=== PATIENT | female | born 1950 | race Caucasian/White ===

== ENCOUNTER 2019-09-05 14:41 | Emergency (ER) | payer MEDICARE, SELFPAY ==
[2019-09-05] VITALS (8 sets, daily range): BP systolic 125–154; BP diastolic 62–94; PULSE 77–91; RESP 10–21; TEMP 37.1–37.2; O2SAT 93–99
--- NOTE | ~2019-09-05 | XR_ITS ---
EXAMINATION: XR chest 2V 09/05/2019 15:15 INDICATION: Chest pain and shortness of breath. A. fib. PROCEDURE: 2 view chest COMPARISON: Comparison to multiple prior studies sequentially, with oldest reviewed study dated 12/2010. FINDINGS: The lungs are clear. The cardiomediastinal silhouette is within normal limits. There are no pleural effusions. There is no pneumothorax suspected. IMPRESSION: 1: NO ACUTE CARDIOPULMONARY DISEASE. Reviewed, dictated and finalized at location B. LINE ENGINE INSPECTOR
--- NOTE | 2019-09-05 14:42 | ECG_ITS ---
Measurements Intervals [place] Rate: 81 P: NV: 0 QRS: 29 QRSD: 98 T: 12 QT: 390 QTc: 453 Interpretive Statements ATRIAL FIBRILLATION BASELINE ARTIFACT- I, II, III, AVR, AVL, AVF ABNORMAL ECG Electronically Signed On 09-05-2019 15:07:39 SWAMPER by Landon Wilson D.O.
[2019-09-05 15:11] LABS: Basophils Absolute Auto 0.1 K/mm3 (0.0-0.1); Basophils Percent Auto 0.9 % (0.2-1.2); Eosinophils Absolute Auto 0.1 K/mm3 (0-0.3); Eosinophils Percent Auto 1.5 % (0-4.4); Hemoglobin 12.5 g/dL (12.0-15.0); Immature Granulocyte Absolute 0.01 K/mm3 (0.00-0.031); Immature Granulocyte Percent A 0.2 % (0-0.5); Lymphocytes Absolute Auto 1.54 K/mm3 (0.9-3.2); Lymphocytes Percent Auto 28.8 % (18.3-44.2); Mean Corpuscular HGB Conc 31.3 g/dl (32-36); Mean Corpuscular Hemoglobin 28.8 pg (26-34); Mean Corpuscular Volume 92.2 fl (80-100); Mean Platelet Volume 9.7 fl (7.4-10.4); Monocytes Absolute Auto 0.6 K/mm3 (0.1-0.6); Monocytes Percent Auto 10.8 % (2.6-8.5); Neutrophils Absolute Auto 3.1 K/mm3 (1.3-6.7); Neutrophils Percent Auto 57.8 % (45.5-73.1); Platelet Count Result 359 k/mm3 (150-375); Red Blood Count 4.34 M/mm3 (4.2-5.4); Red Cell Distribution Width 13.8 % (11.5-14.5); White Blood Count 5.4 K/mm3 (4.5-10.0)
[2019-09-05 15:20] LABS: INR 1.1; Prothrombin Time 13.9 Seconds (11.1-14.7)
[2019-09-05 15:21] LABS: Partial Thromboplastin Time 26.1 SECONDS (22.3-36.8)
--- NOTE | 2019-09-05 15:23 | ED.CHESTPAIN ---
HPI - Chest Pain General Chief Complaint: Chest Pain <Delia Clifford MD - Last Filed: 09/06/19 13:38> Stated Complaint: cp, dizziness, sob, nausea <Delia Clifford MD - Last Filed: 09/06/19 13:38> Time Seen by Provider: 09/05/19 15:13 <Delia Clifford MD - Last Filed: 09/06/19 13:38> Source: patient and RN notes reviewed <Delia Clifford MD - Last Filed: 09/06/19 13:38> Mode of arrival: ambulatory <Deila Clifford MD - Last Filed: 09/06/19 13:38> Limitations: no limitations <Delia Clifford MD - Last Filed: 09/06/19 13:38> History of Present Illness HPI narrative: Pt is a 69 y/o female with a Hx of A-Fib, who presents to the ED with c/o lt sided chest tightness starting 2 days ago. She notes that her pain has intermittently radiated into the lt side of her neck and lt arm. Pt states that she has also had recent SOB, dizziness, nausea, and a headache. 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 Pt currently rates her CP at 4/10. She denies any rectal bleeding or epistaxis. Pt states that she is currently taking Xarelto. She notes that she has had several similar episodes within the past several months. <Delia Clifford MD - Last Filed: 09/06/19 13:38> MD complaint: chest pain <Delia Clifford MD - Last Filed: 09/06/19 13:38> Pertinent past history: other (A-Fib) <Delia Clifford MD - Last Filed: 09/06/19 13:38> Onset (ago): day(s) (2) <Delia Clifford MD - Last Filed: 09/06/19 13:38> Prior episodes: Yes <Delia Clifford MD - Last Filed: 09/06/19 13:38> Pain location: left chest <Delia Clifford MD - Last Filed: 09/06/19 13:38> Pain radiation: left arm and neck (lt side of neck) <Delia Clifford MD - Last Filed: 09/06/19 13:38> Pain scale (0-10): 4 <Delia Clifford MD - Last Filed: 09/06/19 13:38> Quality: tightness <Delia Clifford MD - Last Filed: 09/06/19 13:38> Associated symptoms: nausea, dyspnea and other (dizziness; headache) <Delia Clifford MD - Last Filed: 09/06/19 13:38> Related Data Home Medications: Home Medications Medication Instructions Recorded Confirmed carvedilol 6.25 mg tablet 6.25 mg PO Q12H 05/17/19 07/23/19 denosumab 60 mg/mL subcutaneous 60 mg SUB-Q [id number] 05/17/19 07/23/19 syringe rivaroxaban 20 mg tablet 20 mg PO DAILY 05/17/19 07/23/19 Zanaflex See Rx Instructions .ROUTE 07/23/19 07/23/19 .COMPLEX PRN ascorbic acid (vitamin C) 1,000 mg PO DAILY 07/23/19 07/23/19 cholecalciferol (vitamin D3) 07/23/19 <Delia Clifford MD - Last Filed: 09/06/19 13:38> Allergies/Adverse Reactions: Allergies Allergy/AdvReac Type Severity Reaction Status Date / Time ANTONIA Inhibitors Allergy Mild Cough Verified 09/05/19 14:49 Penicillins Allergy Unknown DIFFICULTY Verified 09/05/19 14:49 BREATHING /RASH <Delia Clifford MD - Last Filed: 09/06/19 13:38> Review of Systems Review of Systems: All systems reviewed & are unremarkable except as noted in HPI and below <Delia Clifford MD - Last Filed: 09/06/19 13:38> Constitutional: Constitutional: Reports headache(s) <Delia Clifford MD - Last Filed: 09/06/19 13:38> ENT: Denies epistaxis <Delia Clifford MD - Last Filed: 09/06/19 13:38> Cardiovascular: Cardiovascular: Reports chest pain (lt sided chest tightness) <Delia Clifford MD - Last Filed: 09/06/19 13:38> Respiratory: Respiratory: Reports dyspnea <Delia Clifford MD - Last Filed: 09/06/19 13:38> Gastrointestinal: Gastrointestinal: Denies hematochezia and Reports nausea <Delia Clifford MD - Last Filed: 09/06/19 13:38> Neurologic: Reports dizziness <Delia Clifford MD - Last Filed: 09/06/19 13:38> [facility] Past Medical History Medical History: Medical History A-fib Paroxysmal Anxiety Arthritis Bowel obstruction Cataracts, bilateral Chronic low back p
[2019-09-05 15:24] LABS: Blood Urea Nitrogen 12 mg/dL (7-17); Calcium 9.5 mg/dL (8.4-10.2); Carbon Dioxide 23 mmol/L (22-30); Chloride 105 mmol/L (98-107); Estimated CRCL calculation 48 ml/min; Estimated Glomerular Filt Rate 55; Glucose 89 mg/dL (65-105); Sodium 138 mmol/L (137-145)
[2019-09-05 15:36] LABS: Troponin I < 0.012 ng/mL (0.000-0.034)
[2019-09-05 16:25] LABS: D Dimer < 0.22 ug/mL (<0.48)
[2019-09-05 18:33] LABS: Troponin I < 0.012 ng/mL (0.000-0.034)
== END 2019-09-05 19:17 | disposition home or self-care (01) ==
PROVIDERS: Emergency Medicine; Emergency Provider Family Medicine; PCP Internal Medicine
DX: R07.89 Other chest pain (principal); R53.1 Weakness; I48.0 Paroxysmal atrial fibrillation; Z79.01 Long term (current) use of anticoagulants; M19.90 Unspecified osteoarthritis, unspecified site; N80.9 Endometriosis, unspecified; M79.7 Fibromyalgia; K21.9 Gastro-esophageal reflux disease without esophagitis; E78.5 Hyperlipidemia, unspecified; I10 Essential (primary) hypertension; E03.9 Hypothyroidism, unspecified; I34.1 Nonrheumatic mitral (valve) prolapse; Z86.73 Personal history of transient ischemic attack (TIA), and cerebral infarction without residual deficits; Z87.440 Personal history of urinary (tract) infections; E55.9 Vitamin D deficiency, unspecified; Z98.1 Arthrodesis status; G62.9 Polyneuropathy, unspecified
CPT/HCPCS: 36415; 71046; 80048; 84484; 85025; 85380; 85610; 85730; 93005; 99284

== ENCOUNTER 2019-10-22 12:00 | Outpatient (RCR) | payer MEDICARE, SELFPAY ==
[2019-10-16 13:59] LABS: Hematocrit 19.8 % (37.0-47.0); Hemoglobin 6.2 g/dL (12.0-15.0)
[2019-10-17 07:46] VITALS: BP 133/53; PULSE 142; RESP 20; TEMP 37; O2SAT 100
[2019-10-17 08:12] VITALS: BP 127/43; PULSE 74; RESP 20; TEMP 36.6; O2SAT 99
[2019-10-17 09:12] VITALS: BP 118/45; PULSE 78; RESP 16; TEMP 36.9; O2SAT 98
[2019-10-17 10:12] VITALS: BP 138/57; PULSE 102; RESP 22; TEMP 36.6; O2SAT 99
[2019-10-17 10:35] VITALS: BP 122/57; PULSE 77; RESP 14; TEMP 37.2; O2SAT 99
[2019-10-22] VITALS (7 sets, daily range): BP systolic 98–114; BP diastolic 40–61; PULSE 60–66; RESP 12–18; TEMP 36.6–37.2; O2SAT 98–100
[2019-10-22 11:33] LABS: Hematocrit 22.6 % (37.0-47.0); Mean Corpuscular HGB Conc 30.1 g/dl (32-36); Mean Corpuscular Hemoglobin 26.7 pg (26-34); Mean Corpuscular Volume 88.6 fl (80-100); Mean Platelet Volume 9.2 fl (7.4-10.4); Platelet Count Result 390 k/mm3 (150-375); Red Blood Count 2.55 M/mm3 (4.2-5.4); Red Cell Distribution Width 14.6 % (11.5-14.5); White Blood Count 3.9 K/mm3 (4.5-10.0)
[2019-10-22 11:36] LABS: Hemoglobin 6.8 g/dL (12.0-15.0)
== END 2020-01-14 23:59 | disposition home or self-care (01) ==
LOC: ANHCPCTRAN 12:00
PROVIDERS: PCP Internal Medicine; Visit Provider Internal Medicine
DX: D50.0 Iron deficiency anemia secondary to blood loss (chronic) (principal); K92.2 Gastrointestinal hemorrhage, unspecified
CPT/HCPCS: 36415; 36430; 85014; 85018; 85027; 86850; 86900; 86901; 86923; P9016

== ENCOUNTER 2019-11-17 06:52 | Outpatient (CLI) | payer MEDICARE, SELFPAY | END 2019-11-17 06:53 | disposition home or self-care (01) | PROVIDERS: PCP Internal Medicine; Visit Provider Specialist | DX: Z01.818 Encounter for other preprocedural examination (principal); Z11.59 Encounter for screening for other viral diseases | CPT/HCPCS: 87635; C9803; U0003 ==

== ENCOUNTER 2019-11-19 08:15 | Outpatient (CLI) | payer MEDICARE, SELFPAY ==
[2019-11-19 17:59] LABS: SARS-CoV-2 RNA PCR Negative
== END 2019-11-19 08:16 | disposition home or self-care (01) ==
LOC: ANHCOVIDDT 08:16
PROVIDERS: PCP Internal Medicine; Visit Provider Specialist
DX: Z01.818 Encounter for other preprocedural examination (principal); Z11.59 Encounter for screening for other viral diseases
CPT/HCPCS: 87635; C9803; U0003

== ENCOUNTER → 2019-11-21 05:39 | Day surgery (SDC) | payer MEDICARE, SELFPAY ==
[2019-11-18 18:08] VITALS: BMI 32.7
[2019-11-21] VITALS (13 sets, daily range): BP systolic 87–162; BP diastolic 53–100; PULSE 70–81; RESP 12–20; TEMP 36.3; O2SAT 93–100; BMI 33.4
--- NOTE | 2019-11-21 09:46 | SUR.PREOP ---
ARRIVES TO [facility] 4 VIA WC FROM OP SURGERY ADMITTING FOR SCHEDULED LHC W/ DR. RICH. REPORTS HAS BEEN HAVING SOB AND FATIGUE WITH ANY EXERTION. REPORTS HAS HAD SOME NAUSEA AND DIARRHEA EPISODE THIS AM, BUT FEELS OK NOW. A&OX4 ON ARRIVAL. ORIENTED TO ROOM, PLAN OF CARE, PROCEDURE. QUESTIONS ANSWERED. VOICED UNDERSTANDING. IV STARTED, LABS SENT, VS OBTAINED, CONSENT SIGNED, SKIN PREP DONE. MONITOR AFIB 70. VSS. WILL MONITOR.
[2019-11-21 10:41] LABS: Basophils Absolute Auto 0.1 K/mm3 (0.0-0.1); Basophils Percent Auto 0.9 % (0.2-1.2); Eosinophils Absolute Auto 0.1 K/mm3 (0-0.3); Eosinophils Percent Auto 1.6 % (0-4.4); Hematocrit 32.2 % (37.0-47.0); Immature Granulocyte Absolute 0.02 K/mm3 (0.00-0.031); Immature Granulocyte Percent A 0.4 % (0-0.5); Lymphocytes Absolute Auto 1.23 K/mm3 (0.9-3.2); Mean Corpuscular HGB Conc 31.1 g/dl (32-36); Mean Corpuscular Hemoglobin 26.3 pg (26-34); Mean Corpuscular Volume 84.7 fl (80-100); Mean Platelet Volume 9.9 fl (7.4-10.4); Monocytes Absolute Auto 0.5 K/mm3 (0.1-0.6); Monocytes Percent Auto 9.5 % (2.6-8.5); Neutrophils Absolute Auto 3.7 K/mm3 (1.3-6.7); Neutrophils Percent Auto 65.6 % (45.5-73.1); Platelet Count Result 352 k/mm3 (150-375); Red Cell Distribution Width 15.5 % (11.5-14.5); White Blood Count 5.6 K/mm3 (4.5-10.0)
[2019-11-21 10:51] LABS: Prothrombin Time 12.8 Seconds (11.1-14.7)
--- NOTE | 2019-11-21 11:11 | SUR.PREOP ---
DR. RICH TO BEDSIDE TO SEE PT.
[2019-11-21 11:17] LABS: Blood Urea Nitrogen 11 mg/dL (7-17); Carbon Dioxide 27 mmol/L (22-30); Chloride 106 mmol/L (98-107); Estimated CRCL calculation 48 ml/min; Estimated Glomerular Filt Rate 55; Glucose 97 mg/dL (65-105); Potassium 3.4 mmol/L (3.4-5.0); Sodium 137 mmol/L (137-145)
--- NOTE | 2019-11-21 11:48 | WPDMODSED ---
Moderate Sedation Note-Pt Data Patient Data Diagnosis: intermittent chest pain felt to be atypical of angina paroxysmal atrial fibrillation currently in sinus rhythm Present Complaint: intermittent chest pain Procedure to be performed/Plan: left heart catheterization Allergies Allergy/AdvReac Type Severity Reaction Status Date / Time ANTONIA Inhibitors Allergy Mild Cough Verified 11/21/19 11:11 Penicillins Allergy Unknown DIFFICULTY Verified 11/21/19 11:11 BREATHING /RASH Home Medications Medication Instructions Recorded Confirmed Type denosumab 60 mg/mL subcutaneous 60 mg SUB-Q [id number] 05/17/19 11/18/19 History syringe rivaroxaban 20 mg tablet 20 mg PO DAILY 05/17/19 11/21/19 History ascorbic acid (vitamin C) 1,000 mg PO DAILY 07/23/19 11/18/19 History cholecalciferol (vitamin D3) 2,000 units PO DAILY 07/23/19 11/18/19 History lovastatin 20 mg tablet 20 mg PO DAILY #90 tablet 09/11/19 11/18/19 Rx tizanidine 4 mg capsule 4 mg PO BID PRN #60 cap 11/05/19 11/18/19 Rx levothyroxine 75 mcg tablet 75 mcg PO DAILY #90 tablet 11/17/19 11/21/19 Rx biotin 1 mg PO DAILY 11/18/19 11/18/19 History carvedilol [Coreg] 12.5 mg PO BID 11/18/19 11/21/19 History duloxetine 30 mg PO DAILY 11/18/19 11/18/19 History gabapentin 300 mg PO DAILY 11/18/19 11/18/19 History butalbital 50 mg-acetaminophen 300 1 cap PO Q4H PRN #60 cap 11/19/19 Rx mg-caffeine 40 mg-codeine 30 mg cap Current Medications: Active Medications Sodium Chloride (Normal Saline Iv) 500 mls @ 100 mls/hr IV CONT .Q5H JOSÉ MIGUEL Sedation/Anesthesia: No previous sedation/anesthesia problems (including family history). [facility] Family History Family History (System 11/04/19 @ 06:15 by Neema Puente) Father Cerebrovascular accident Mother Acute myocardial infarction Sibling Acute myocardial infarction Daughter Metastatic breast cancer Daughter Chiari malformation Mother Hypertension Family history of heart disease in male family member before age 55 Family history of cardiovascular disease Father Family history of diabetes mellitus in first degree relative Family history of heart disease in male family member before age 55 Cerebrovascular accident Sibling Patient's sister is in good health Patient's brother is in good health, Onset Age: 38 Other Family history of malignant neoplasm Social History Social History (System 11/04/19 @ 06:15 by Neema Puente) Social History: The patient has 2 daughters. She has living will and desires to be a full code. She lives with her . She retired from banking. Lifelong nonsmoker. Smoking status: Never smoker Alcohol intake: never Substance use: never Gender identity (if verbalized by the patient): Female Spiritual care concerns: No Agree to blood products: Yes Mod Sed Physical Exam Physical Exam Pre Procedural Exam: Normal: Appearance, Nose, Neck, Throat, Airway, Lungs, Heart Size, Heart Rate, Heart Rhythm, Neuro Exam and Extremities Hours since solid foods: 12 Hours since liquid intake: 12 Internal Medicine - PN: Obj Da Vital Signs Vital Signs: Vital Signs - 24 hr 11/21/19 10:30 Temperature 36.3 C L Pulse Rate 70 Respiratory Rate 16 Blood Pressure 112/60 Pulse Oximetry 100 Meds/Results Medications: Active Medications Generic Name Dose Route Start Last Admin Trade Name Freq PRN Reason Stop Dose Admin Sodium Chloride 500 mls @ 100 mls/hr 11/21/19 06:05 Normal Saline Iv IV CONT .Q5H JOSÉ MIGUEL Labs CBC & Chem 7: 11/21/19 10:28 11/21/19 10:53 Labs: Laboratory Results - last 24 hr 11/21/19 11/21/19 11/21/19 10:27 10:28 10:53 WBC 5.6 RBC 3.80 L Hgb 10.0 L D Hct 32.2 L MCV 84.7 MCH 26.3 MCHC 31.1 L RDW 15.5 H Plt Count 352 MPV 9.9 Immature Gran % (Auto) 0.4 Neut % (Auto) 65.6 Lymph % (Auto) 22.0 [place] % (Auto) 9.5 H Eos % (Auto) 1.6 Baso % (Au
--- NOTE | 2019-11-21 12:18 | P.PCNCC_ITS ---
Cardiac Cath Procedure Note Date of procedure:: 11/21/19 Performing physician:: Oleksandr Wang MD Indication:: evaluation of chest pain Brief clinical history:: 69-year-old female with episodes of intermittent chest pain atypical in setting but worrisome quality ischemia. In this setting physicians have recommended angiography Procedure Procedure performed:: left heart catheterization coronary angiography and left ventriculography Angio-Seal device deployed at femoral puncture site Sedation/Medication given:: fentanyl 50 mg Versed 2 mg case start time 11:57 a.m. case end time 12:10 p.m. sedation provided by Jennifer Menendez RN , trained observer Access site:: right femoral artery Estimated blood loss:: 10-15 cc Procedure note:: patient was brought to the cardiac catheterization lab in the postabsorptive state the right femoral triangle was prepared in the usual fashion. Anesthesia was provided with 1% lidocaine infiltrated locally. Using the modified Seldinger technique a 5 [place] sheath was placed into the femoral artery. Left heart catheterization was then carried out a 5 [place] angle pigtail catheter was used to document left-sided hemodynamics, pullback pressures across the aortic valve and inject the left ventriculogram in the PAK projection. After this a 5 [place] FL4 catheter was used to engage inject the left coronary artery. The 5 [place] JR4 catheter was used to engage inject the right coronary artery. After this an angiogram was done of the femoral artery through the sheath and a 6 [place] Angio-Seal device was deployed at the puncture site with a good hemostatic result. Following this the case was terminated the patient was taken to the holding area for recovery and eventual discharge later today. 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 Findings:: Central aortic pressure was 1 60 over 74. Left ventricle 160/0 end-diastolic 7. No significant gradient on pullback across the aortic valve. The left main coronary artery is large in caliber. There is minimal stenosis in the distal aspect of the left main representing about 20% luminal stenosis. There is no view where this appears to be flow limiting. The LAD is a medium caliber artery extending down to around the apex. There is no stenosis in the LAD there is some proximal calcification in the vessel but no stenotic lesions are identified. The circumflex is a large caliber vessel giving rise to the marginal branches appears to be codominant terminating in a small left PDA. Angiographically the circumflex is unremarkable. Right coronary artery is medium caliber vessel is codominant terminating in a medium-sized RPDA. The right coronary in the 2nd portion is quite tortuous but angiographically otherwise unremarkable. Conclusion:: Codominant coronary circulation with no significant coronary disease minimal distal left main stenosis angiographically about 20% LVH with good systolic function Angio-Seal deployed at the end of the case with good hemostatic result Oleksandr Wang MD [facility]
--- NOTE | 2019-11-21 16:05 | SUR.PHASEII ---
1540 IV removed; pt felt lightheaded, became diaphoretic, felt nauseous, and BP decreased to 90's. [address] GRADER OPERATOR and Dr. Wang made aware. Per Dr. Wang keep pt additional 30 minutes to monitor if her symptoms subside and she is back to baseline, pts echo updated. 1600 pt states she is feeling better;BP increased to 116/69, will continue to monitor.
--- NOTE | 2019-11-21 16:26 | SUR.PHASEII ---
1625 Per Olive FLAG MAKER, educate pt on vasovagal syncope, encourage her to stay hydrated and sit down when feeling light headed and to try and identify triggers to these episodes.
== END | disposition home or self-care (01) ==
PROVIDERS: PCP Internal Medicine; Visit Provider Specialist
PROC: 4A023N7 Measurement of Cardiac Sampling and Pressure, Left Heart, Percutaneous Approach (ICD-10-PCS; CPT 93452; principal; 2019-11-21 11:00)
DX: R07.89 Other chest pain (principal); I48.0 Paroxysmal atrial fibrillation; Z79.01 Long term (current) use of anticoagulants
CPT/HCPCS: 36415; 80048; 85025; 85610; 93458; C1760; C1887; C1894; G0269; J1644; J2250; J3010; J7040

== ENCOUNTER 2020-01-21 01:55 | Outpatient (CLI) | payer MEDICARE, SELFPAY ==
[2020-01-21 18:39] LABS: SARS-CoV-2 RNA PCR Negative
== END 2020-01-21 01:56 | disposition home or self-care (01) ==
LOC: ANHCOVIDDT 01:57
PROVIDERS: PCP Internal Medicine; Visit Provider Specialist
DX: Z01.812 Encounter for preprocedural laboratory examination (principal); Z11.59 Encounter for screening for other viral diseases
CPT/HCPCS: 87635; C9803; U0003

== ENCOUNTER 2020-01-23 05:37 | Day surgery (SDC) | payer MEDICARE, SELFPAY ==
[2020-01-22 16:11] VITALS: BMI 33.3
[2020-01-23 11:09] LABS: Hematocrit 31.6 % (37.0-47.0); Hemoglobin 9.7 g/dL (12.0-15.0); Mean Corpuscular HGB Conc 30.7 g/dl (32-36); Mean Corpuscular Hemoglobin 24.9 pg (26-34); Mean Corpuscular Volume 81.2 fl (80-100); Mean Platelet Volume 9.7 fl (7.4-10.4); Platelet Count Result 375 k/mm3 (150-375); Red Blood Count 3.89 M/mm3 (4.2-5.4); White Blood Count 4.8 K/mm3 (4.5-10.0)
[2020-01-23] MEDS: LIDOCAINE HCL 1% LOCAL INJ 20 ML VIAL (11:40)
--- NOTE | 2020-01-23 11:54 | P.PCNCC_ITS ---
Cardiac Cath Procedure Note Date of procedure:: 01/23/20 Performing physician:: Oleksandr Wang MD Indication:: Unexplained syncope Brief clinical history:: this is a 69-year-old female with history of modest co ronary artery disease also history of paroxysmal atrial fib / flutter. Loop recorder has been recommended by my partner to investigate syncopal symptoms Procedure Procedure performed:: implantation of permanent loop recorder Sedation/Medication given:: no sedation administered Access site:: left precordium Estimated blood loss:: minimal Procedure note:: patient was brought to the cardiac catheterization lab holding area in the postabsorptive state. The patient had the 4th intercostal space identified in the midclavicular line. And marked. Patient was then prepped and draped in the normal sterile fashion. Anesthesia was injected in this region with 20 cc of 1% lidocaine. Following this a Biotronik bio monitor 3 loop recorder was inserted. The supplied blade was used to create the puncture and then the device was inserted inferior to the puncture angled to the left upper quadrant. There was minimal oozing at the puncture site this was addressed with direct manual compression and a drop of bio glue was then placed over the area which was then dressed with a Band-Aid. Telemetry using the analyzer demonstra harleen excellent telemetry quality. The patient is in atrial fibrillation with controlled ventricular response at the time of the implant. Findings:: Uneventful implantation of Biotronik bio monitor loop recorder Conclusion:: as above uneventful loop recorder implantation
== END 2020-01-23 12:25 | disposition home or self-care (01) ==
PROVIDERS: Internal Medicine Cardiovascular Disease; PCP Internal Medicine; Visit Provider Specialist
PROC: (CPT 33285; principal; 2020-01-23 11:30)
DX: R55 Syncope and collapse (principal); I48.0 Paroxysmal atrial fibrillation; I25.10 Atherosclerotic heart disease of native coronary artery without angina pectoris
CPT/HCPCS: 33285; 36415; 85027; C1764

== ENCOUNTER 2020-02-17 10:17 | Outpatient (CLI) | payer MEDICARE, SELFPAY ==
--- NOTE | 2020-02-21 11:34 | SLEEP_ITS ---
Home Sleep Test DATE OF STUDY: 02/17/2020 ORDERING PHYSICIAN: Dom Zaidi M.D. REASON FOR THE STUDY: Hypersomnia. HISTORY: This patient is a 69-year-old female, 5 feet 4 inches tall, weighing 194.5 pounds. Body mass index is 33.3. She has fragmented sleep and wakes at least 3 times at night, sometimes as often as 5 times at night, is tired every day and wants to sleep frequently during the day. She has shortness of breath. She has severe migraine headaches. She frequently snores and is occasionally loud enough that others complain about it. She rarely awakens at night with heartburn, belching, or coughing. She occasionally awakens from sleep short of breath. There is a family history with her mother, 90 years old, having sleep problems. The patient occasionally has trouble sleeping with a cold. Rarely wakes up gasping for breath at night, never has breathing problems at night reported to her by others. She occasionally sweats excessively at night. She frequently notices her heart pounding or beating irregularly at night. She occasionally falls asleep during the day, never involuntarily, never while driving, and never with physical effort. She rarely notices loss of muscle tone with strong emotion. She does not have daytime difficulties due to excessive sleepiness. She occasionally feels paralyzed with waking or falling asleep and occasionally has vivid dreamlike scenes upon awakening or falling asleep. She is never afraid to go to sleep. She occasionally has nightmares. She rarely remembers her dreams. She frequently has racing thoughts, frequently feels sad, depressed, and anxious. She occasionally has muscular tension. Occasionally notices parts of her body jerking and occasionally kicks at night. She frequently has crawling and aching feelings in her legs. She does not have morning jaw pain, rarely grinds her teeth at night, frequently is bothered by pain during the day and is awakened by pain at night, occasionally wakes up feeling stiff in the morning with sore achy muscles and frequently wakes up with pain in the neck and spine. She has stomach problems, fatigue, dizziness, bowel disturbances, memory problems, fainting spells, insomnia, and concentration difficulties. She has depression. Normal bedtime is 12 midnight, taking an hour and a half to 2 hours to fall asleep, typically waking 4-5 times at night for 20 minutes. During this time, she will read or work on a puzzle. She wakes in the morning at 7 to 8 a.m. Weekend schedule is the same. She estimates between 5 and 6 hours of sleep at night. Her sleep is often disturbed by back pain. She does not take naps. A short nap is not refreshing. She is usually drowsy in the morning for an hour. She feels better in the evening than in the morning. MEDICAL COMORBIDITIES: Depression and anxiety, coronary artery disease with nonobstructive lesions, syncopal and presyncopal episodes, atrial fibrillation, history of a GI bleed with blood loss anemia, hypertension, and hyperlipidemia. MEDICATIONS: 1. Carvedilol 3.125 mg twice a day. 2. Levothyroxine 75 mcg daily. 3. Gabapentin 300 mg once a day. 4. Calcium supplement once a day. 5. Xarelto 20 mg a day. 6. Lovastatin 20 mg a day. 7. Duloxetine 60 mg a day. 8. Nitrofurantoin 100 mg a day to prevent urinary tract infections. 9. Prolia 60 mg twice a year. 10. Vitamin D and vitamin B12 daily. HABITS: Never smoked tobacco. Caffeine, 2 cups per day. No alcohol or recreational drugs. DESCRIPTION OF THE STUDY: On the [place] Sleepiness Scale, the score is 2. This was conducted as an unattended type III portable home sleep test using 4-channel monitoring including respiratory effort channel, snoring channel, oxygen saturation channel, and hea
== END 2020-02-17 10:18 | disposition home or self-care (01) ==
LOC: ANHCSM 10:20
PROVIDERS: PCP Internal Medicine; Visit Provider Internal Medicine Cardiovascular Disease
DX: I48.0 Paroxysmal atrial fibrillation (principal); G47.10 Hypersomnia, unspecified; G47.33 Obstructive sleep apnea (adult) (pediatric)
CPT/HCPCS: 95806

== ENCOUNTER 2020-07-05 14:11 | Outpatient (CLI) | payer MEDICARE, SELFPAY ==
--- NOTE | 2020-07-06 15:28 | WPDSIXMINUTE ---
Six Minute Walk This is a 6 minutes walk for exertional dyspnea. Findings: The patient's resting room air oxygen saturation measured by pulse oximetry was 97% and her heart rate was 70. Patient ambulated for 304.8 meters and oxygen saturation remained 94 to 97%. Heart rate at the end of ambulation was 95. There are no prior studies for comparison
--- NOTE | 2020-07-06 15:37 | WPDPFTINT ---
PFT Interpretation This is a pulmonary function test with plethysmography and diffusing capacity. The test was performed and results interpreted in cords with the 2005 and 2019 ATS/ERS task force guidelines respectively using the Haile/Herb reference to questions. Of note, despite 7 attempts the patient was unable to reproducibly complete spirometry because she was very short of breath and lightheaded. Findings: Plethysmography: Total lung capacity is 4.20 L, 88% predicted. The functional residual capacity is 2.25 L, 96% predicted. The residual volume is 1.76 L, 90% predicted. Diffusion capacity: The absolute diffusing capacity is 16.8, 74% predicted. The diffusing capacity corrected for alveolar volume is 4.0, 113% predicted. In Impression: The lung volumes are normal. The absolute diffusion capacity is mildly decreased but normalizes when corrected for alveolar volume. There are no prior studies for comparison.
== END 2020-07-05 14:12 | disposition home or self-care (01) ==
PROVIDERS: PCP Internal Medicine; Visit Provider Internal Medicine Critical Care Medicine
DX: R06.02 Shortness of breath (principal)
CPT/HCPCS: 94726; 94729

== ENCOUNTER 2020-09-10 13:58 | Outpatient (CLI) | payer MEDICARE, SELFPAY ==
--- NOTE | 2020-09-10 17:21 | P.PCNPFT_ITS ---
PFT Interpretation This is a pulmonary function test with pre and post-bronchodilator spirometry. The test was performed and results interpreted in accordance with the 2019 and 2005 ATS/ERS Task Force guidelines respectively using the Global Lung Function Initiative-2012 reference equations. Reproducibility was poor. The quality of the pre bronchodilator spirometry maneuver was Grade C and post bronchodilator spirometry maneuver was Grade A. Of note this was a repeat spirometry as the patient could not complete spirometry on 07/05/2020 Findings: Spirometry: Contour of the pre and post bronchodilator expiratory flow tracings are extrememly blunted. The pre bronchodilator FVC was 2.67 L, 95% predicted. The pre bronchodilator FEV1 was 1.38 L, 64% predicted. The FEV1: FVC ratio is 52%. The post bronchodilator FVC is 2.59 L, representing a 3% decrease. The post bronchodilator FEV1 is 1.18 L, representing a 15% decrease. Impression: The spirometry was not reproducible on this study and on her previous study on 07/05/2020. Using the best available data, there is a moderate obstructive abnormality. There is no significant improvement after inhaling a s audrey dose of albuterol. Clinical correlation is recommended There are no prior studies for comparison
== END 2020-09-10 13:59 | disposition home or self-care (01) ==
PROVIDERS: PCP Internal Medicine; Visit Provider Nurse Practitioner Family
DX: R06.02 Shortness of breath (principal)
CPT/HCPCS: 94060

== ENCOUNTER 2021-01-05 11:11 | Outpatient (CLI) | payer MEDICARE, BC, SELFPAY ==
--- NOTE | ~2021-01-05 | MR_ITS ---
EXAMINATION: MR brain IAC wo con DATE: 01/05/2021 12:45 INDICATION: Migraine headache. Not intractable. Without status migrainosus. TECHNIQUE: Magnetic resonance imaging (MRI) of the brain, brainstem, and internal auditory canals was performed without intravenous contrast. Sequences included sagittal and axial T1-weighted FSE, axial diffusion-weighted FS EPI, axial T2*-weighted GRE, axial T2-weighted FLAIR Propeller, axial T2-weigh harleen Propeller, small [id number] coronal FIESTA, small [id number] coronal T1-weighted FSE, and s mall [id number] axial T1-weighted SPGR. Apparent diffusion coefficient (ADC) maps were created. COMPARISON: Brain MRI 04/03/2009 FINDINGS: There are old infarcts in right frontal lobe and the right basal ganglia. There are scatter ed areas of nonspecific increased T2-weighted signal intensity in the cerebral white matter. There is no intracranial hemorrhage, acute infarction, or abnormal intracranial mass lesion. The ventricles a re normal in size. The paranasal sinuses are clear. There are likely changes of ocular lens replaceme nt surgeries. The mastoid air cells are normal. The internal auditory canals and inner and middle ear s are normal. IMPRESSION: 1. 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 2. Mild nonspecific cerebral white matter disease, which likely represents chronic small vessel ische cindy disease, worsened from 04/03/2009. Reviewed, dictated and finalized at location A. IMPRESSION: 1. 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 2. Mild nonspecific cerebral white matter disease, which likely represents tank car inspector marie small vessel ischemic disease, worsened from 04/03/2009.
== END 2021-01-05 11:12 | disposition home or self-care (01) ==
PROVIDERS: PCP Internal Medicine; Visit Provider Nurse Practitioner
DX: G43.909 Migraine, unspecified, not intractable, without status migrainosus (principal); R93.0 Abnormal findings on diagnostic imaging of skull and head, not elsewhere classified
CPT/HCPCS: 70551

== ENCOUNTER 2021-02-17 08:33 | Outpatient (CLI) | payer MEDICARE, SELFPAY ==
--- NOTE | ~2021-02-17 | DEXA_ITS ---
Bone Density Report Name: Erin Sinha Age: 70 Sex: Female Ethnicity: White Date of : 1950 Indication: postmenopausal osteoporosis; monitoring treatment; hysterectomy; Referring Provider: MANISH CLAIRE Study: Bone densitometry was performed. Exam Date: February 17, 2021 Accession number: [id number] Bone Density: Region BMD T-score Z-score Classification AP Spine (L1-L4) 0.767 -2.5 -0.3 Osteoporosis Femoral Neck (Left) 0.557 -2.6 -0.7 Osteoporosis Total Hip (Left) 0.697 -2.0 -0.4 Osteopenia Total Hip Bilateral Avg 0.644 -2.5 -0.8 Osteoporosis Femoral Neck (Right) 0.541 -2.8 -0.8 Osteoporosis Total Hip (Right) 0.589 -2.9 -1.2 Osteoporosis World Health Organization criteria for BMD impression classify patients as: Normal (T-score at or above -1.0), Osteopenia (T-score between -1.0 and -2.5), or Osteoporosis (T-score at or below -2.5). 10-year Fracture Risk: FRAX not reported because: Some T-score for Spine Total or Hip Total or Femoral Neck at or below -2.5 Treated for osteoporosis Previous Exams: Region Exam Age BMD T-score BMD Change BMD Change Date g/cm2 vs Baseline vs Previous AP Spine(L1-L4) 02/17/2021 70 0.767 -2.5 0.014(1.8%)# -0.006(-0.8%) 10/23/2018 68 0.773 -2.5 0.020(2.6%)# 0.004(0.5%) 04/13/2015 64 0.769 -2.5 0.016(2.1%)# 0.033(4.4%)# 12/05/2012 62 0.737 -2.8 -0.017(-2.2%)# -0.017(-2.2%)# 01/18/2009 58 0.754 -2.7 Total Hip(Left) 02/17/2021 70 0.697 -2.0 -0.038(-5.2%)# -0.022(-3.1%) 10/23/2018 68 0.719 -1.8 -0.016(-2.1%)# -0.020(-2.7%) 04/13/2015 64 0.739 -1.7 0.004(0.6%)# 0.033(4.7%)# 12/05/2012 62 0.706 -1.9 -0.029(-4.0%)# -0.029(-4.0%)# 01/18/2009 58 0.735 -1.7 Total Hip(Right) 02/17/2021 70 0.589 -2.9 -0.107(-15.4%) -0.061(-9.3%)* 10/23/2018 68 0.650 -2.4 -0.047(-6.7%)# 0.008(1.3%) 04/13/2015 64 0.642 -2.5 -0.055(-7.9%)# -0.037(-5.4%)# 12/05/2012 62 0.678 -2.2 -0.018(-2.6%)# -0.018(-2.6%)# 01/18/2009 58 0.697 -2.0 *Denotes significance at 95% confidence level, LSC for AP Spine = 0.022 g/cm2, LSC for Total Hip = 0.027 g/cm2 Clinical Information Provided by Patient: Is being treated for osteoporosis Has used the following medications: Prolia (i.e. denosumab), Vitamin D, Calcium Has the following medical conditions: Hysterectomy Patient maximum height was 64 Menopause Age: 45 No regular weight bearing exercise Drinks caffeinated beverages Onset of menses at age 11 Number of children
== END 2021-02-17 08:34 | disposition home or self-care (01) ==
LOC: ANHIMG 08:38
PROVIDERS: PCP Internal Medicine; Visit Provider Internal Medicine
DX: M81.0 Age-related osteoporosis without current pathological fracture (principal); M85.852 Other specified disorders of bone density and structure, left thigh
CPT/HCPCS: 77080

== ENCOUNTER 2021-03-18 10:32 | Outpatient (CLI) | payer MEDICARE, SELFPAY ==
--- NOTE | ~2021-03-18 | XR_ITS ---
EXAMINATION: XR lg joint inject/aspiration DATE: 03/18/2021 11:12 INDICATION: Right rotator cuff tendinopathy with right shoulder pain TECHNIQUE: A time-out was performed to verify the patient's name, date of , and procedure to b e performed. The procedure including the risks, benefits, and alternatives was discussed with the pat ient. Risks discussed included bleeding and infection. The patient understood the risks and agreed to proceed. The skin overlying the rotator cuff interval of the right glenohumeral joint was prepped a nd draped in usual sterile fashion. Anesthetic was administered with 1% lidocaine subcutaneously. A 22 G needle was advanced under fluoroscopic guidance into the joint. Injection of 1 mL of Omnipaque 240 confirmed intra-articular position of the needle. Subsequently, injectate consisting of 4 mL of a 3:1 mixture of 1% lidocaine: 80 mg/mL Depo-Medrol for a total dosage of 80 mg Depo-Medrol was inst illed. Washout of contrast was seen confirming intra-articular administration. The needle was removed and the entry site was cleaned and dressed. There were no immediate complications. Fluoroscopy expo sure time was 0.1 minutes. The total number of images was 2 Total DAP was 0.301 mGycm^2 . FINDINGS: Real-time fluoroscopy demonstrates the needle in the right glenohumeral joint. Patient's pa in prior to procedure:12/09. Patient's pain following the procedure: 11/08. IMPRESSION: 1. Right glenohumeral injection of local anesthetic and steroid with decrease in the patient's presen ting pain. Reviewed, dictated and finalized at location A. IMPRESSION: 1. Right glenohumeral injection of local anesthetic and steroid with decrease i n the patient's presenting pain.
== END 2021-03-18 10:33 | disposition home or self-care (01) ==
PROVIDERS: PCP Internal Medicine; Visit Provider Orthopaedic Surgery
DX: M25.511 Pain in right shoulder (principal)
CPT/HCPCS: 20610; 77002; J1040

== ENCOUNTER 2021-07-19 07:31 | Outpatient (CLI) | payer MEDICARE, SELFPAY ==
--- NOTE | ~2021-07-19 | MR_ITS ---
EXAMINATION: MR knee LT wo con DATE: 07/19/2021 08:31 INDICATION: Left knee pain TECHNIQUE: Magnetic resonance imaging (MRI) of the left knee was performed without intravenous contra st. Sequences included coronal PD-weighted FSE, coronal PD-weighted FS FSE, sagittal T2-weighted FSE , sagittal PD-weighted FS FSE and axial PD weighted fat saturated FSE. COMPARISON: Left knee radiographs dated 07/11/2021 FINDINGS: Medial compartment: Medial meniscus is normal. Mild chondral surface regularity at the anterior weightbearing medial femo ral condyle and central aspect of the medial tibial plateau. Lateral compartment: There is a tear of indeterminate morphology involving the inner third of the body of the lateral meni scus and measuring 5 mm AP. Mild chondral swelling is surface irregularity at the anterior weightbear ing lateral femoral condyle. Patellofemoral compartment: Extensive deep chondral ulceration extending across the central aspect of the medial patellar facet, apical ridge and lateral facet. Several foci of associated underlying increased subarticular marrow s ignal. Similar deep chondral ulceration with articular cortical irregularity and subarticular increas ed marrow signal extending across the central aspect of the lateral trochlea. Ligaments and tendons: Anterior and posterior cruciate ligaments are normal. The medial collateral ligament and fibular joseph ateral ligament complex are normal. Mild distal quadriceps tendinopathy. Patellar tendon is normal. T he visualized medial and lateral hamstring tendons as well as the iliotibial band are normal. Fluid: Small left knee joint effusion with mild synovitis at the lateral gutter of the suprapatellar pouch. No loose osteochondral bodies identified. Small Heard's cyst. Osseous/other: Few small patchy regions of red marrow in the distal femur and proximal tibia and fibula. No fracture or pathologic marrow replacing process. IMPRESSION: 1. Small tear of indeterminate morphology involving the inner third of the body of the lateral menisc us. 2. 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 3. Mild osteoarthritis with small regions of mild chondral surface regularity in the medial and later al compartments. 4. Mild distal quadriceps tendinopathy. 5. Small left knee joint effusion and small Heard's cyst. Reviewed, dictated and finalized at location A. AN IMPRESSION: 1. Small tear of indeterminate morphology involving the inner third of the body of the lateral meniscus. 2. Moderate patellofemoral osteoarthritis with extensive high-grade chondromala ken. 3. Mild osteoarthritis with small regions of mild chondral surface regularity i n the medial and lateral compartments. 4. Mild distal quadriceps tendinopathy. 5. Small left knee joint effusion and small Heard's cyst.
== END 2021-07-19 07:32 | disposition home or self-care (01) ==
PROVIDERS: PCP Internal Medicine; Visit Provider Orthopaedic Surgery
DX: M25.562 Pain in left knee (principal); S83.282A Other tear of lateral meniscus, current injury, left knee, initial encounter; M17.12 Unilateral primary osteoarthritis, left knee; M22.42 Chondromalacia patellae, left knee; M76.892 Other specified enthesopathies of left lower limb, excluding foot; M25.462 Effusion, left knee; M71.22 Synovial cyst of popliteal space [Baker], left knee
CPT/HCPCS: 73721

== ENCOUNTER 2021-10-24 09:42 | Outpatient (CLI) | payer MEDICARE, SELFPAY ==
--- NOTE | ~2021-10-24 | MR_ITS ---
EXAMINATION: MR shoulder RT wo con DATE: 10/24/2021 10:54 INDICATION: Right shoulder pain TECHNIQUE: Magnetic resonance imaging (MRI) of the right shoulder was performed without intravenous c ontrast. Sequences included axial PD-weighted FS FSE, coronal oblique PD-weighted FS FSE, coronal obl ique T2-weighted FS FSE, sagittal PD-weighted FS FSE, and sagittal T1-weighted SE. COMPARISON: None. FINDINGS: Coracoacromial arch: The acromion undersurface is curved in morphology (type II). The coracoacromial ligament is normal. M ild acromioclavicular osteoarthritis. Rotator cuff: Mild supraspinatus, infraspinatus and subscapularis tendinopathy without discrete tear. The teres min or tendon is normal. Normal rotator cuff muscle bulk and signal. Biceps tendon, glenoid labrum and glenohumeral cartilage: Long head of the biceps tendon is normal. Mild partial-thickness cartilage loss with smooth chondral surface along the posterior glenoid. The posterior and posterosuperior glenoid labrum is small likely reflecting changes of chronic degeneration without a clearly defined labral tear. Fluid: Physiologic amount of fluid in the glenohumeral joint and biceps tendon sheath. No loose osteochondr al bodies. No abnormal increased fluid in the subacromial/subdeltoid bursa to suggest bursitis. Bones: Normal marrow signal with no edema, fracture or abnormal marrow replacing process. IMPRESSION: 1. Mild supraspinatus, infraspinatus and subscapularis tendinopathy without discrete tear. 2. Mild glenohumeral osteoarthritis with likely degeneration of the small posterior to posterior supe rior glenoid labrum. 3. Mild acromioclavicular osteoarthritis. Reviewed, dictated and finalized at location B. IMPRESSION: 1. Mild supraspinatus, infraspinatus and subscapularis tendinopathy without dis crete tear. 2. Mild glenohumeral osteoarthritis with likely degeneration of the small poste rior to posterior superior glenoid labrum. 3. Mild acromioclavicular osteoarthritis.
== END 2021-10-24 09:43 | disposition home or self-care (01) ==
LOC: ANHIMG 09:47
PROVIDERS: PCP Internal Medicine; Visit Provider Orthopaedic Surgery
DX: M19.011 Primary osteoarthritis, right shoulder (principal)
CPT/HCPCS: 73221

== ENCOUNTER 2023-04-30 09:50 | Outpatient (CLI) | payer MEDICARE, SELFPAY ==
--- NOTE | ~2023-04-30 | DEXA_ITS ---
Bone Density Report Name: FLORY ABDALLA Age: 72 Sex: Female Ethnicity: White Date of : 1950 Indication: postmenopausal osteoporosis; monitoring treatment; prior fracture; hysterectomy; Referring Provider: ANTONELLA BENTON Study: Bone densitometry was performed. Exam Date: April 30, 2023 Accession number: [id number] Bone Density: Region BMD T-score Z-score Classification AP Spine(L1-L4) 0.763 -2.6 -0.2 Osteoporosis Femoral Neck (Left) 0.564 -2.6 -0.5 Osteoporosis Total Hip (Left) 0.712 -1.9 -0.1 Osteopenia Femoral Neck (Right) 0.538 -2.8 -0.7 Osteoporosis Total Hip (Right) 0.600 -2.8 -1.0 Osteoporosis Total Hip Mean 0.656 -2.4 -0.6 Osteopenia World Health Organization criteria for BMD impression classify patients as: Normal (T-score at or above -1.0), Osteopenia (T-score between -1.0 and -2.5), or Osteoporosis (T-score at or below -2.5). 10-year Fracture Risk: FRAX not reported because: Some T-score for Spine Total or Hip Total or Femoral Neck at or below -2.5 Treated for osteoporosis Previous Exams: Region Exam Age BMD T-score BMD Change BMD Change Date g/cm2 vs Baseline vs Previous AP Spine (L1-L4) 04/30/2023 72 0.763 -2.6 0.026 (3.6%)# -0.004 (-0.5%) 02/17/2021 70 0.767 -2.5 0.031 (4.1%)# -0.006 (-0.8%) 10/23/2018 68 0.773 -2.5 0.037 (5.0%)# 0.004 (0.5%) 04/13/2015 64 0.769 -2.5 0.033 (4.4%)# 0.033 (4.4%)# 12/05/2012 62 0.737 -2.8 Total Hip(Left) 04/30/2023 72 0.712 -1.9 0.006 (0.8%)# 0.015 (2.1%) 02/17/2021 70 0.697 -2.0 -0.009 (-1.2%) -0.022 (-3.1%) 10/23/2018 68 0.719 -1.8 0.013 (1.9%)# -0.020 (-2.7%) 04/13/2015 64 0.739 -1.7 0.033 (4.7%)# 0.033 (4.7%)# 12/05/2012 62 0.706 -1.9 Total Hip(Right) 04/30/2023 72 0.600 -2.8 -0.079 (-11.6% 0.010 (1.7%) 02/17/2021 70 0.589 -2.9 -0.089 (-13.1% -0.061 (-9.3%) 10/23/2018 68 0.650 -2.4 -0.028 (-4.2%) 0.008 (1.3%) 04/13/2015 64 0.642 -2.5 -0.037 (-5.4%) -0.037 (-5.4%) 12/05/2012 62 0.678 -2.2 *Denotes significance at 95% confidence level, LSC for AP Spine = 0.022 g/cm2, LSC for Total Hip = 0.027 g/cm2 # Denotes dissimilar scan types or analysis methods Clinical Information Provided by Patient: Has had a low trauma fracture Is being treated for osteoporosis Has used the following medications: Prolia (i.e. denosumab), Vitamin D, Calcium Has the following medical conditions: Hysterectomy Patient maximum height was 64 Menopause Age: 2
== END 2023-04-30 09:51 | disposition home or self-care (01) ==
LOC: ANHIMG 09:52
PROVIDERS: PCP Nurse Practitioner; Visit Provider Nurse Practitioner
DX: M81.0 Age-related osteoporosis without current pathological fracture (principal); M85.852 Other specified disorders of bone density and structure, left thigh; M85.851 Other specified disorders of bone density and structure, right thigh
CPT/HCPCS: 77080

== ENCOUNTER 2023-12-14 15:22 | Outpatient (CLI) | payer MEDICARE, SELFPAY ==
--- NOTE | ~2023-12-14 | XR_ITS ---
XR foot LT min 3V Ordering provider: Alexander Sifuentes APRN History: . M79.672 - Pain in left foot . Comparison: None. FINDINGS: BONES: No acute fracture or dislocation. JOINT SPACES: Narrowing of the proximal and distal interphalangeal joints. No tarsal coalition. SOFT TISSUES: Normal. IMPRESSION: No acute osseous abnormality left foot. Reviewed, dictated and finalized at location A.
--- NOTE | ~2023-12-14 | CT_ITS ---
EXAMINATION: CT brain wo con DATE: 12/14/2023 16:07 INDICATION: Altered mental status TECHNIQUE: Computed tomography (CT) of the head was performed without intravenous contrast. The mA wa s adjusted according to patient size. Iterative reconstruction technique was employed. Exam dose: 60 5.33 mGy-cm total exam DLP. COMPARISON: 01/05/2021 MR brain 04/01/2009 CT brain FINDINGS: Chronic right frontal and right greater than left basal ganglia lacunar infarcts. Bilateral carotid siphon internal carotid artery calcifications. There is nonspecific diminished atte nuation of the cerebral white matter, likely due to chronic small vessel ischemic changes. No intracranial mass lesion or hemorrhage or recent cerebrovascular accident is detected. No midline shift or mass effect. No subdural or epidural hematoma is detected. No fracture or bone destruction of the cranial vault. The mastoid air cells and included paranasal si nuses are unremarkable. IMPRESSION: Chronic right frontal and bilateral basal ganglia lacunar infarcts No acute intracranial finding Reviewed, dictated and finalized at Location A. Reviewed, dictated and finalized at location A.
== END 2023-12-14 15:23 | disposition home or self-care (01) ==
PROVIDERS: PCP Nurse Practitioner; Visit Provider Nurse Practitioner
DX: M79.672 Pain in left foot (principal); R41.82 Altered mental status, unspecified; R51.9 Headache, unspecified
CPT/HCPCS: 70450; 73630

== ENCOUNTER 2024-02-22 12:57 | Outpatient (CLI) | payer MEDICARE, SELFPAY ==
--- NOTE | ~2024-02-22 | CT_ITS ---
EXAMINATION: CTA brain carotid DATE: 02/22/2024 13:29 INDICATION: Weakness. TECHNIQUE: Computed tomographic angiography (CTA) of the head was performed without and with 100 mL O mnipaque-350 intravenous contrast. CTA of the neck was performed with intravenous contrast. Automated exposure control and iterative reconstruction technique were employed. The dose-length product was 1 479.19 mGy-cm. Maximum intensity projection and volume rendered 3D-reconstructions were created by vidhya fischer technologist on a separate workstation. COMPARISON: Head CT 12/14/2023, brain MRI 01/05/21 FINDINGS: HEAD CTA: There is chronic encephalomalacia involving right frontal lobe. There are old infarcts in t he bilateral basal ganglia. There is no intracranial hemorrhage, acute infarction, or abnormal intrac ranial mass lesion. The ventricles are normal in size. There are likely changes of ocular lens replac ement surgeries. The paranasal sinuses are clear. The mastoid air cells are normal. Right vertebral a rtery is dominant. There is no significant stenosis of basilar artery or the posterior cerebral arter ies. There is no significant stenosis of the intracranial internal carotid arteries or anterior or mi ddle cerebral arteries. Anterior communicating artery is normal. The posterior communicating arteries are normal. There is no aneurysm. 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 There are no pathologically enlarged lymph nodes. There is no significant stenosis of the vertebral arteries. The re is no significant plaque in the proximal internal carotid arteries. There is 0% stenosis of the pr oximal right internal carotid artery relative to normal distal artery lumen diameter (NASCET criteria ). There is 0% stenosis of the proximal left internal carotid artery relative to normal distal artery lumen diameter. There is moderate cervical spondylosis. IMPRESSION: 1. Chronic encephalomalacia involving the right frontal lobe. Old lacunar infarcts in the bilateral b jeremi ganglia. 2. No aneurysm or significant intracranial arterial stenosis. 3. 0% stenosis of the proximal internal carotid arteries relative to normal distal artery lumen diame ters (NASCET criteria). Reviewed, dictated and finalized at location A. IMPRESSION: 1. Chronic encephalomalacia involving the right frontal lobe. Old lacunar infar cts in the bilateral basal ganglia. 2. No aneurysm or significant intracranial arterial stenosis. 3. 0% stenosis of the proximal internal carotid arteries relative to normal dis maris artery lumen diameters (NASCET criteria).
[2024-02-22 13:20] LABS: Estimated Glomerular Filt Rate 48
== END 2024-02-22 12:58 | disposition home or self-care (01) ==
LOC: ANHIMG 12:59
PROVIDERS: PCP Nurse Practitioner; Visit Provider Psychiatry & Neurology Neurology
DX: R53.1 Weakness (principal)
CPT/HCPCS: 70496; 70498; Q9967

== ENCOUNTER 2024-03-06 13:37 | Outpatient (CLI) | payer MEDICARE, SELFPAY ==
--- NOTE | 2024-03-06 13:51 | ECHO_ITS ---
Patient Info Name: Erin Sinha Age: 73 years : 1950 Gender: Female Ht: 64 in Wt: 157 lbs BSA: 1.81 m2 HR: 74 bpm BP: 130 / 73 mmHg Heart Rhythm: Sinus Rhythm Technical Quality: Good Exam Date: 03/06/2024 1:58 PM Exam Location: Echo Lab Patient Status: Outpatient Admit Date: 03/06/2024 Staff Ordering Physician: Nasra Urena MD Interlocking Machine Operator: Madhuri Pena RDCS Attending Provider: MyrtleJennifer MD Referring Physician: Ayanna ZENDEJAS; Exam Type: CA echo doppler w bubble study Study Info Indications - HISTORY OF STROKE R41.82 - ALTERED MENTAL STATUS UNSPECIFIED R51.9 - HEADACHE, UNSPECIFIED R06.02 - Shortness of breath R53.1 - Weakness Complete two-dimensional, color flow and Doppler transthoracic echocardiogram is performed with agitated saline. Strain analysis performed. Contrast/Agitated Saline Contrast/Ag. Saline: Agitated Saline Amount: 20.00 ml New IV Access: Antecubital Space and Left Site Condition: No extravasation, Site dressing applied and IV removed Summary 1. Left ventricular chamber dimension is normal. 2. Left ventricular systolic function is normal, estimated at 55-60%. 3. There is mild asymmetric septal increased left ventricular wall thickness. 4. The left ventricular diastolic function is grade III diastolic dysfunction. 5. Right ventricular chamber dimension is mildly enlarged. 6. Right ventricular systolic function is normal. 7. Left atrial chamber dimension is severely enlarged. 8. Intact interatrial septum visualized by color flow and agitated saline imaging. Negative bubble study. 9. There is mild mitral valve regurgitation. 10. There is mild tricuspid valve regurgitation. Left Ventricle Left ventricular chamber dimension is normal. Left ventricular systolic function is normal, estimated at 55-60%. There is mild asymmetric septal increased left ventricular wall thickness. The left ventricular diastolic function is grade III diastolic dysfunction. Global longitudinal strain is abnormal at -17 %. Right Ventricle Linear artifact in right ventricle suggestive of catheter(s), pacemaker lead(s), or ICD lead(s). Right ventricular chamber dimension is mildly enlarged. Right ventricular systolic function is normal. Left Atria Left atrial chamber dimension is severely enlarged. Right Atria Linear artifact in the right atrium suggestive of catheter(s), pacemaker lead(s), or ICD lead(s). Right atrial chamber dimension is normal. Atrial Septum Intact interatrial septum visualized by color flow and agitated saline imaging. Negative bubble study. Aortic Valve The aortic valve is trileaflet. There is no aortic valve stenosis. There is no aortic valve regurgitation. Pulmonic Valve The pulmonic valve is not well visualized. There is trace pulmonic regurgitation. Mitral Valve There is mild mitral valve regurgitation. Tricuspid Valve There is mild tricuspid valve regurgitation. Pericardium/Pleural There is no pericardial effusion. Inferior Vena Cava Normal inferior vena cava with <50% collapse upon inspiration consistent with elevated right atrial pressure, 8 mmHg. Aorta The aortic root size at the sinus of Valsalva is normal. Left Ventricular Outflow Tract Name Value Normal LVOT 2D LVOT
== END 2024-03-06 13:38 | disposition home or self-care (01) ==
LOC: ANHCARD 13:38
PROVIDERS: PCP Nurse Practitioner; Visit Provider Student in an Organized Health Care Education/Training Program
DX: R06.02 Shortness of breath (principal); R41.82 Altered mental status, unspecified; R51.9 Headache, unspecified; R53.1 Weakness
CPT/HCPCS: 93306; 96375

== ENCOUNTER 2024-05-01 13:26 | Outpatient (CLI) | payer MEDICARE, SELFPAY ==
--- NOTE | ~2024-05-01 | XR_ITS ---
XR shoulder RT min 2V Ordering provider: Alexander Sifuentes APRN History: . M25.511 - Pain in right shoulder X NOVEMBER AFTER FALL RADIATING . Comparison: October 31, 2021 FINDINGS: BONES: No acute fracture or dislocation. JOINT SPACES: The acromioclavicular joint is normal. The glenohumeral joint is normal. SOFT TISSUES: Normal. IMPRESSION: No acute osseous abnormality right shoulder. Reviewed, dictated and finalized at location A.
== END 2024-05-01 13:27 | disposition home or self-care (01) ==
PROVIDERS: PCP Nurse Practitioner; Visit Provider Nurse Practitioner
DX: M25.511 Pain in right shoulder (principal)
CPT/HCPCS: 73030

== ENCOUNTER 2024-05-08 13:10 | Outpatient (CLI) | payer MEDICARE, SELFPAY ==
--- NOTE | 2024-05-08 15:00 | NEURO_ITS ---
Clinical note: Patient is 73-year-old with history of paresthesias in her both feet and lower back pain. Patient has had surgery in the lumbar spine in 2004. Summary of findings: 1. Left and right peroneal and tibial motor distal latency amplitude and conduction velocities were within acceptable normal limits. 2. Left and right sural and right medial plantar sensory distal latency was normal however amplitudes were mildly decreased. 3. Left and right H reflex latencies were at the upper limits of the normal however amplitudes are significantly decreased. 4. EMG examination was performed using a mono polar needle electrode. Various muscles were examined in lower limbs including gluteal muscles. paraspinal muscles were not examined since the patient has had surgery in the lumbar spine. No denervation changes were seen. Motor unit amplitude, duration and recruitment pattern were within acceptable normal limits. Impression: EMG and nerve conduction study of both lower limbs show evidence of mild, length-dependent, predominantly sensory, axonal peripheral neuropathy. Clinical an etiologic correlation is recommended. The patient has had surgery in the lumbar spine and hence paraspinal muscles were is not examined. However this study did not show supportive evidence for L3-S1 radiculopathy at this time. If clinically relevant radiographic correlation may be helpful. Nasra Urena MD, FAAN, FAANEM Neurology and electrodiagnostic Medicine Nerve Conduction Studies Motor Nerve Results Latency Amplitude F-Lat Segment Distance CV Comment Site (ms) (mV) (ms) (cm) (m/s) Left Fibular (EDB) Motor Ankle 3.9 2.6 Pop Fossa 12.6 1.90 Pop Fossa-Ankle 355 40 Right Fibular (EDB) Motor Ankle 4.2 3.3 Pop Fossa 13.1 3.0 Pop Fossa-Ankle 350 39- Left Tibial (AHB) Motor Ankle 4.7 9.2 Knee 15.6 5.9 Knee-Ankle 410 38 Right Tibial (AHB) Motor Ankle 5.0 9.3 Knee 15.1 6.8 Knee-Ankle 420 42 Sensory Nerve Results Latency (Peak) Amplitude (P-P) Segment Distance CV Comment Site (ms) (?V) (cm) (m/s) Right Medial Plantar (Ortho) Sensory Great Toe-Med Mall 2.7 7 Great Toe-Med Mall 110 41 Left Sural Sensory Calf-Lat Mall 3.6 7 Calf-Lat Mall 120 33 Right Sural Sensory Calf-Lat Mall 3.3 7 Calf-Lat Mall 120 36 H-Reflex Results M-Lat H Lat H Peak-Peak Amp M Peak-Peak Amp H-M Lat Site (ms) (ms) mV mV (ms) Left Tibial H-Reflex Pop Fossa 6.2 34.7 1.89 1.88 28.5 Right Tibial H-Reflex Pop Fossa 6.4 32.5 1.96 1.43 26.1 Electromyography Side Muscle Nerve Ins Act Fibs Psw Amp Dur Recrt Comment Right BicepsFemS Sciatic Nml Nml Nml Nml Nml Nml Right Semimembranosus Sciatic Nml Nml Nml Nml Nml Nml Right AntTibialis Dp Br Fibular Nml Nml Nml Nml Nml Nml Right Gastroc Tibial Nml Nml Nml Nml Nml Nml Right VastusMed Femoral Nml Nml Nml Nml Nml Nml Right RectFemoris Femoral Nml Nml Nml Nml Nml Nml Right TensorFascLat SupGluteal Nml Nml Nml Nml Nml Nml Left BicepsFemS Sciatic Nml Nml Nml Nml Nml Nml Left Semimembranosus Sciatic Nml Nml Nml Nml Nml Nml Left AntTibialis Dp Br Fibular Nml Nml Nml Nml Nml Nml Left Gastroc Tibial Nml Nml Nml Nml Nml Nml Left VastusMed Femoral Nml Nml Nml Nml Nml Nml MTDD
== END 2024-05-08 13:11 | disposition home or self-care (01) ==
PROVIDERS: PCP Internal Medicine; Visit Provider Psychiatry & Neurology Neurology
DX: R53.1 Weakness (principal)
CPT/HCPCS: 95886; 95910

== ENCOUNTER 2024-10-22 18:57 | Emergency (ER) | payer MEDICARE, SELFPAY ==
--- NOTE | ~2024-10-22 | XR_ITS ---
HISTORY: fall COMPARISON: None TECHNIQUE: 2 views of the left elbow were performed FINDINGS: No acute fracture is identified. No elevation of the anterior or posterior fat pads are identified to suggest a supracondylar fracture . Overlying soft tissues are unremarkable. Bone mineralization is age-appropriate. IMPRESSION: No acute fracture or dislocation, as detailed above. Reviewed, dictated and finalized at location A.
--- NOTE | ~2024-10-22 | CT_ITS ---
History: Fall PROCEDURE: CT head without contrast. COMPARISON: 12/14/2023 TECHNIQUE: Axial imaging of the head performed from the skull base to the vertex without IV contrast. Sagittal a nd coronal reformations obtained. DLP: 605 mGy-cm FINDINGS: The ventricles are normal in size, shape and position. There is no mass, mass effect or midline shift. There is no abnormal extra-axial fluid collection or intracranial hemorrhage. Visualized paranasal sinuses are clear. The mastoid air cells are well aerated. No acute displaced fractures within the overlying cranium. Impression: No acute intracranial hemorrhage or suspicious mass effect. Reviewed, dictated and finalized at location A. Impression: No acute intracranial hemorrhage or suspicious mass effect.
--- NOTE | ~2024-10-22 | XR_ITS ---
XR wrist LT 2V Ordering provider: Guille García MD History: . fall . Comparison: None. FINDINGS: BONES: Fracture in the distal left radius metaphysisnoted. No definite scaphoid fracture. JOINT SPACES: Well maintained. SOFT TISSUES: Normal. IMPRESSION: Fracture in the distal metaphysis of the left radius. Reviewed, dictated and finalized at location A.
--- NOTE | ~2024-10-22 | CT_ITS ---
History: Ground-level fall PROCEDURE: CT cervical spine without intravenous contrast. COMPARISON: None TECHNIQUE: Multiple contiguous axial images of the cervical spine were performed without the administration of i ntravenous contrast. DLP: 181 mGy-cm FINDINGS: Straightening and slight reversal of the normal curvature of the cervical spine is identified, likely muscular in origin. Degenerative disease is identified. No acute fractures are present. The bilateral lung apices are unremarkable. No soft tissue abnormality is present. The airway is patent. Impression: Straightening and slight reversal of the normal curvature of the cervical spine, likely muscular in o rigin. Degenerative disease, without acute fracture. Reviewed, dictated and finalized at location A. Impression: Straightening and slight reversal of the normal curvature of the cervical spine , likely muscular in origin. Degenerative disease, without acute fracture.
--- NOTE | ~2024-10-22 | XR_ITS ---
HISTORY: fall COMPARISON: None TECHNIQUE: 3 views of the left hand were performed. FINDINGS: Within the left hand: No acute fracture or dislocation is identified. Degenerative disease is noted, with distal joint space narrowing suggesting osteoarthritis. Degenerative disease is present within the first carpometacarpal joint space. Not included entirely on the submitted image is a comminuted fracture of the distal radius, with poss ible extension into the articular surface for which dedicated wrist x-rays are recommended. IMPRESSION: Degenerative disease without acute fracture or dislocation within the left hand, as detailed above. Not included entirely on the submitted image is a comminuted fracture of the distal radius, with poss ible extension into the articular surface for which dedicated wrist x-rays are recommended and clinic al examination is needed. Reviewed, dictated and finalized at location A. IMPRESSION: Degenerative disease without acute fracture or dislocation within the left hand , as detailed above. Not included entirely on the submitted image is a comminuted fracture of the di stal radius, with possible extension into the articular surface for which dedic ated wrist x-rays are recommended and clinical examination is needed.
[2024-10-22 18:58] VITALS: BP 160/73; PULSE 59; RESP 16; TEMP 36.4; O2SAT 97
--- OUTSIDE RECORDS SUMMARY | 2024-10-22 18:59 | XMS_ITS | Encounter Summary ---
Author Organization [facility] Address [address] [place] [address] Phone Care Team Providers Care Mutual Funds Agent Name Role Phone Vinicio Escoto MD Unavailable [phone] Titus Can MD Unavailable Coleen Collins MD Unavailable [phone] Dallin Cifuentes MD Primary Care Provider [phone] Encounter Details Date Type Department Care Team (Late st Contact Info) Description 10/01/2024 Orders Only [facility] Cardiology [address] [place] [address] Vinicio Escoto MD [address] [place] [address] Social History Tobacco Use Types Packs/Day Years Used Date Smoking Tobacco: Never Smokeless Tobacco: Never Alcohol Use Standard Drinks/Week Comments No 0 (1 standard drink = 0.6 oz pur e alcohol) Social Connection and Isolat ion Panel [NHANES] Answer Date Recorded In a typical week, how many times do you talk on the phone with family, friends, or neighbors? More than three times a week 08/02/2022 How often do you get togethe r with friends or relatives? More than three times a week 08/02/2022 How often do you attend [facility] or religion services? More than 4 times per year 08/02/2022 Do you belong to any clubs o r organizations such as religious groups, unions, fraternal or athletic groups, or school groups? No 08/02/2022 How often do you attend meet ings of the clubs or organizations you belong to? Never 08/02/2022 Marital Status Not on file 08/02/2022 AUDIT-C Answer Date Recorded Q1: How often do you have a drink containing alc ohol? Never 10/03/2021 Average Number of Drinks Not on file 022 Q3: How often do you have si x or more drinks on one occasion? Never 10/03/2021 Overall Financial Resource Strain (CARDIA) Answe r Date Recorded How hard is it for you to pa y for the very basics like food, housing, medical care, and heating? Not hard at all 08/02/2022 Hunger Vital Sign Answer Date Recorded Within the past 12 months, y ou worried that your food would run out before you got the money to buy more. Never true 08/02/19 23 Within the past 12 months, t he food you bought just didn't last and you didn't have money to get more. Never true 08/02/2022 PRAPARE - Transportation Answer Date Re corded In the past 12 months, has l ack of transportation kept you from medical appointments or from getting medications? No 07/2022 In the past 12 months, has l ack of transportation kept you from meetings, work, or from getting things needed for daily living? No 08/02/2022 Personal Safety Answer Date Recorded Getting School Help Needed Denies 07/17 Education Answer Date Recorded What is the highest level of school you have completed or the highest degree you have received? 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 Author CCM Chronic Pain Care Plan Chronic Care Management No Jaja Castelan, REBEKA Note: Problem: Chronic Pain Goals: 1. Minimize further functional decline 2. Maximize quality of life 3. Control pain Strategies: - Activity/exercise program recommendation - Conservative stepwise pain medicine strategy with multi-disciplinary approach - Recommend healthy lifestyle strategies and compensatory methods as needed Reduce the likelihood of falling Lifestyle No Virginia Lundberg RN Note: Below are four things you can do to prevent falls: 1. Begin an exercise program to improve your leg strength & balance 2. Ask your doctor or pharmacist to review your medicines 3. Get annual eye check-ups & update your eyeglasses 4. Make your home safer by: Removing clutter & tripping hazards Putting railings on all stairs & adding grab bars in the bathroom Having good lighting, especially on stairs Contact your local community or [facility] for information on exercise, fall prevention programs, or options for improving home safety. documented as of this encounter Procedures Procedure Name Priority Date/Time Associated Diagnosis Comments DEVICE CHECK - REMOTE Routine 10/01/2024 4:13 AM CDT documented in this encounter Results * DEVICE CHECK - REMOTE (10/01/2024 4:13 AM CDT) Anatomical Region Laterality Modality Other 10/01/2024 4:13 AM CDT Narrative 10/21/2024 4:24 PM CDT Interpretation Summary: Battery and Leads (BL) Normal parameters noted on battery and lead(s) --- 75% remaining longevity. Lead impedance, sensing, and threshold trends stable and appropriate. Presenting Rhythm (WA) Atrial Pacing-Ventricular Sensing (AP-VS) --- AP/VS 60 bpm. Arrhythmic events (AE) No new arrhythmic events in monitoring period --- Since 07/02/24: No AHR or VHR episodes. Anticoagulation (AC) Patient prescribed Rivaroxaban (Xarelto) Patient on anticoagulant therapy Transmission Information (TI) Device Summary Report Follow Up (FU) Patient's primary treating physician will be apprised of findings Procedure Note Vinicio Escoto MD - 10/21/2024 Interpretation Summary: Battery and Leads (BL) Normal parameters noted on battery and lead(s) --- 75% remaininglongevity. Lead impedance, sensing, and threshold trends stable andappropriate. Presenting Rhythm (WA) Atrial Pacing-Ventricular Sensing (AP-VS) --- AP/VS 60 bpm. Arrhythmic events (AE) No new arrhythmic events in monitoring period --- Since 07/02/24: No AHRor VHR episodes. Anticoagulation (AC) Patient prescribed Rivaroxaban (Xarelto) Patient on anticoagulant therapy Transmission Information (TI) Device Summary Report Follow Up (FU) Patient's primary treating physician will be apprised of findings us Vinicio Escoto MD [facility] PRO CEDURES Final Result documented in this encounter Visit Diagnoses Not on filedocumented in this encounter Care Teams Mutual Funds Agent Relationship Specialty Start Date End Date Dallin Cifuentes MD PCP - General Family Practice 07/19/23 Vinicio Escoto MD Consulting Physician Cardiology 08/11/21 Titus Can MD Referring Physician Cardiovascular Disease 01/24/22 Coleen Collins MD Consulting Physician Gastroenterology 08/05/22 documented as of this encounter
--- OUTSIDE RECORDS SUMMARY | 2024-10-22 18:59 | XMS_ITS | CONTINUITY OF CARE DOCUMENT ---
Author Name kassandracandacetegan Address Unknown Organization [facility] Address [address] [facility] [facility] [address] [place] [address] Phone [phone] Care Team Providers Care Sea Shell Gatherer Name Role Phone Pamella DAVE, Titus Unavailable [phone] Titus Can MD Unavailable [phone] PROBLEMS Condition Status Date Provider Notes S/P Dual chamb PCM - Biotron ik ( MRI Safe) active Annette Nelson Cardiology examination active Titus Mcclelland Atrial Fibrillation active Titus Can MD Hyperlipidemia active Titus Can MD Hypertension active Titus Can MD Pacemaker active Titus Can MD (History o f) Dyspnea active Titus Can MD ENCOUNTERS Date Type Provider Location Encounter Diag nosis 02/06 - 02/06 In-person encounter Office Visit Titus Can MD [facility] Cardiology examinationAtrial FibrillationHyperlipidemiaHypertensionPacemakerDysp ava VITAL SIGNS Date Observation Value Provider Body Mass Index (Ratio) 30.04 kg/m2 Titus Can MD blood pressure, diastolic 69 mm[Hg] Anila nkLogkathie blood pressure, systolic 119 mm[Hg] Khadra kLogic blood pressure, diastolic 69 mm[Hg] Sa ra Gallo blood pressure, systolic 119 mm[Hg] Morales a Gallo oxygen saturation, oximetry 95 % Monse Gallo respiratory rate E&M 17 /min Monse Si ms pulse rate 75 /min Monse Gallo blood pressure, cuff size regular Sa ra Gallo weight E&M 175 [lb_av] Monse Gallo height E&M 64 [in_i] Monse Gallo ALLERGIES Allergy Name Onset Date Reaction Criticality Status ANTONIA INHIBITORS High Criticality acti ve PENICILLIN High Criticality active HISTORY OF MEDICATION USE Medication Status Instructions Dates Provider Indications Com ments Lasix 20 mg tablet active Take 1 tablet by mouth once a day TAKE 1 TABLET BY MOUTH DAILY. Titus Can MD carvedilol 12.5 mg tablet active Monse Gallo Xarelto 20 mg tablet active Monse Gallo trazodone 50 mg tablet active Monse Gallo pantoprazole 40 mg tablet,delayed release (DR/EC) active Monse Gallo duloxetine 60 mg capsule,delayed release(DR/EC) active Monse Gallo fluticasone propionate 50 mcg/actuation spray,suspension active Monse Gallo alprazolam 1 mg tablet active Monse Gallo gabapentin 300 mg capsule active Monse Gallo baclofen 10 mg tablet active Monse Gallo levothyroxine 75 mcg tablet active Monse Gallo INSURANCE PROVIDERS Payer name Policy type / Coverage type [place] red green party ID [facility] [id number] [place] B Medicare [id number] ADVANCE DIRECTIVES Name Date DISCUSSED - NO DECISION MADE TREATMENT PLAN Date Name Performer [id number],C,W ith activities P ossible anginal equivalent. Stress test P revention / risk reduction of CAD based on AHA/ACC guidelines involving Smoking, Blood Pressure control, Lipid management, Physical activity, Weight management, Diabetes management, use of antiplatelet / anticoagulant agents, Renin Angiotensin-aldosterone system blockers, beta blockers, and compliance with medications discussed with patient. H er updated medication list for this problem includes: Lasix 20 Mg Tablet (Furosemide) ..... Take 1 tablet by mouth once a day take 1 tablet by mouth daily. Carvedilol 12.5 Mg Tablet (Carvedilol) Titus Can MD [id number],C,w ell controlled H er updated medication list for this problem includes: Lasix 20 Mg Tablet (Furosemide) ..... Take 1 tablet by mouth once a day take 1 tablet by mouth daily. Carvedilol 12.5 Mg Tablet (Carvedilol) Titus Can MD [id number],C,I n paced atrial rhythm O n Xarelto Her updated medication list for this problem includes: Carvedilol 12.5 Mg Tablet (Carvedilol) Titus Can MD Cardiology:With acti vities P ossible anginal equivalent. Stress test P revention / risk reduction of CAD based on AHA/ACC guidelines involving Smoking, Blood Pressure control, Lipid management, Physical activity, Weight management, Diabetes management, use of antiplatelet / anticoagulant agents, Renin Angiotensin-aldosterone system blockers, beta blockers, and compliance with medications discussed with patient. H er updated medication list for this problem includes: Lasix 20 Mg Tablet (Furosemide) ..... Take 1 tablet by mouth once a day take 1 tablet by mouth daily. Carvedilol 12.5 Mg Tablet (Carvedilol) Titus Can MD Cardiology:well cont rolled H er updated medication list for this problem includes: Lasix 20 Mg Tablet (Furosemide) ..... Take 1 tablet by mouth once a day take 1 tablet by mouth daily. Carvedilol 12.5 Mg Tablet (Carvedilol) Titus Can MD Cardiology:In paced atrial rhythm O n Xarelto Her updated medication list for this problem includes: Carvedilol 12.5 Mg Tablet (Carvedilol) Titus Can MD Date Name Stress Regadenoson HISTORY OF PROCEDURES Procedure Date Procedure Name Provider Procedure Notes S tatus EKG Titus Can MD completed
--- OUTSIDE RECORDS SUMMARY | 2024-10-22 19:00 | XMS_ITS | Referral Summary ---
Author Organization [facility] Healthcare Address [address] [place] [address] Care Team Providers Care Hospitality Coordinator Name Role Phone Vinicio Escoto MD Unavailable Titus Can MD Unavailable Coleen Collins MD Unavailable [phone] Dallin Cifuentes MD Primary Care Provider [phone] Encounters Date Type Department Care Team Description 10/01/2024 Orders Only [facility] Cardiology [address] [facility] Medical Office Building [address] [place] [address] Vinicio Escoto MD 08/13/2024 Telephone [facility] Cardiology [address] [facility] Advanced Medicine 8th [place] [address] [place] [address] Vinicio Escoto MD from Last 3 Months Allergies Active Allergy Reactions Criticality Noted Date Comments Oscar Inhibitors Cough Low Penicillins Rash,Swollen tongue High Tolerates cefazolin 01/23/22 Medications ascorbate calcium 500 mg tablet Take by mouth. Active cholecalciferol (VITAMIN D-3) 2,000 unit capsule 1 capsule (2,000 Units total) Active lovastatin (MEVACOR) 20 mg tablet Take 1 tablet (20 mg total) by mouth daily [address] (CYMBALTA) 30 mg capsule Take 2 capsules (60 mg total) by mouth daily Active levothyroxine (SYNTHROID) 75 mcg tablet Take 1 tablet (75 mcg total) by mouth daily 0 Active ALPRAZolam (XANAX) 1 mg tablet Take 1 tablet (1 mg total) by mouth 2 (two) times a day as needed 0 Active traZODone (DESYREL) 100 mg tablet Take 0.5 tablets (50 mg total) by mouth nightly at bedtime 1 Active melatonin 10 mg capsule Take by mouth nightly as needed Active baclofen (LIORESAL) 10 mg tablet Take 2 tablets (20 mg total) by mouth 2 (two) times a day as needed for muscle spasms Active gabapentin (NEURONTIN) 300 mg capsule Take 2 capsules (600 mg total) by mouth nightly 3 11/15/19 28 Active sertraline (ZOLOFT) 100 mg tablet TAKE 2 TABLETS BY MOUTH ONCE DAILY IN THE MORNING 3 Active carvediloL (COREG) 12.5 mg tablet TAKE 1 TABLET BY MOUTH TWICE DAILY WITH MEALS 180 tablet 3 4 Active rivaroxaban (Xarelto) 20 mg tabletIndications :atrial fibrillation Take 1 tablet (20 mg total) by mouth daily Starting 08/12/22 90 tablet 3 5 08/13/19 26 Active Active Problems Problem Noted Date Diagnosed Date Pacemaker 07/19/2023 Gastrointestinal hemorrhage, unspecified gastrointestinal hemorrhage type 08/01/2022 Fall 01/17/2022 Sick sinus syndrome 01/17/2022 Overview (01/23/2022): Added automatically from request for surgery [id number] Hypothyroidism 08/09/2021 Assessment & Plan (08/10/2021 8:49 AM SHADOWGRAPH SCALE OPERATOR): TSH wnl - continue home levothyroxine Assessment & Plan (08/09/2021 6:25 AM SHADOWGRAPH SCALE OPERATOR): TSH wnl - continue home levothyroxine Obesity (BMI 30.0-34.9) 08/08/2021 Assessment & Plan (08/10/2021 8:49 AM SHADOWGRAPH SCALE OPERATOR): - weight loss encouraged Assessment & Plan (08/09/2021 9:26 AM SHADOWGRAPH SCALE OPERATOR): - weight loss encouraged Assessment & Plan (08/08/2021 5:33 PM SHADOWGRAPH SCALE OPERATOR): - weight loss encouraged Depression 08/08/2021 Assessment & Plan (08/10/2021 8:49 AM SHADOWGRAPH SCALE OPERATOR): Mood appears stable - continue home cymbalta Assessment & Plan (08/09/2021 9:26 AM SHADOWGRAPH SCALE OPERATOR): Mood appears stable - continue home cymbalta Assessment & Plan (08/08/2021 5:35 PM SHADOWGRAPH SCALE OPERATOR): Mood appears stable - continue home cymbalta Insomnia 08/08/2021 Assessment & Plan (08/10/2021 8:49 AM SHADOWGRAPH SCALE OPERATOR): - continue home trazodone, will order ramelteon in place of melatonin Assessment & Plan (08/09/2021 9:27 AM SHADOWGRAPH SCALE OPERATOR): - continue home trazodone, will order ramelteon in place of melatonin Assessment & Plan (08/08/2021 5:36 PM SHADOWGRAPH SCALE OPERATOR): - continue home trazodone, will order ramelteon in place of melatonin DOMONIQUE (obstructive sleep apnea) 02/27/2020 Assessment & Plan (08/10/2021 8:49 AM SHADOWGRAPH SCALE OPERATOR): Intolerant to CPAP. Has oral appliance at home, did not bring with her Assessment & Plan (08/09/2021 9:26 AM SHADOWGRAPH SCALE OPERATOR): Intolerant to CPAP. Has oral appliance at home, did not bring with her Assessment & Plan (08/08/2021 5:33 PM SHADOWGRAPH SCALE OPERATOR): Intolerant to CPAP. Has oral appliance at home, did not bring with her Status post placement of implantable loop record er 01/26/2020 Overview (08/16/2021): Biotronik-Biomonitor III Implantable Loop Recorder. Dx; Syncope, Afib. DOI 01/23/2020-Kathleen. Biotronik remote home monitoring. 08/16/2021-remote monitoring transferred to [place]-Dr Escoto. Recurrent syncope 01/16/2020 Hypersomnolence 01/16/2020 Paroxysmal atrial flutter 09/10/2019 Chest pain 09/10/2019 Black stools 06/07/2018 Paroxysmal atrial fibrillation (CMS/HCC) 018 Assessment & Plan (10/04/2021 12:10 PM CDT): S/p successful Afib ablation Continue xarelto, Continue ppi -continue amiodarone -anticipate d/c home today Assessment & Plan (08/10/2021 8:43 AM SHADOWGRAPH SCALE OPERATOR): Symptomatic paroxysmal atrial fibrillation, Admitted to sotalol loading. no missed doses of Xarelto - sotalol 80mg daily due to renal dysfunction - 12 lead EKG 2 hours after sotalol to follow QTc - continue coreg for now - strict telemetry - continue Xarelto with evening meal - anticipate cardioversion prior to discharge if she does not convert prior Assessment & Plan (08/09/2021 9:26 AM SHADOWGRAPH SCALE OPERATOR): Symptomatic paroxysmal atrial fibrillation, Admitted to sotalol loading. no missed doses of Xarelto - sotalol 80mg daily due to renal dysfunction - 12 lead EKG 2 hours after sotalol to follow QTc - continue coreg for now - strict telemetry - continue Xarelto with evening meal - anticipate cardioversion prior to discharge if she does not convert prior Assessment & Plan (08/08/2021 5:29 PM SHADOWGRAPH SCALE OPERATOR): Symptomatic paroxysmal atrial fibrillation, Admitted to sotalol loading. no missed doses of Xarelto - check baseline EKG - check baseline laboratory work including CMP, daily BMP, TSH - If renal function and QTc allow, will begin sotalol 80mg bid with 12 lead EKG 2 hours after each dose to follow QTc - strict telemetry - continue Xarelto with evening meal - anticipate cardioversion prior to discharge if she does not convert prior Lipid screening 10/12/2017 Palpitations 10/12/2017 Coronary artery disease of n ative artery of [place] heart with stable angina pectoris 10/12/2017 Essential hypertension 10/12/2017 Hyperlipidemia LDL goal <70 10/12/2017 Jaw pain 10/12/2017 Pre-syncope 10/12/2017 Shortness of breath 10/12/2017 Acute diverticulitis Acute blood loss anemia Immunizations Immunization Administration Dates Next Due Influenza, Quadrivalent, Hig h Dose, Preservative Free, Intrr 08/05/2022 Social History Tobacco Use Types Packs/Day Years Used Date Smoking Tobacco: Never Smokeless Tobacco: Never Tobacco Cessation:Counseling Given: Not Answered Alcohol Use Standard Drinks/Week Comments No 0 [...] week 08/02/2022 How often do you attend chur ch or oriental orthodox services? More than 4 times per year 08/02/2022 Do you belong to any clubs o r organizations such as yazidism groups, unions, fraternal or athletic groups, or [...] on file Legal Sex Female 12:34 AM SHADOWGRAPH SCALE OPERATOR Gender Identity Not on file Sexual Orientation Not on file Occupation Industry Job Start Date Job End Date retired Not on file Not on file Not on file Last Filed Vital Signs Vital Sign Reading Time Taken Comments Blood Pressure 146/86 03/26/2024 2:56 PM CDT Pulse 92 03/26/2024 2:56 PM CDT Temperature 36.9 C (98.4 F) 08/05/2022 7:00 AM SHADOWGRAPH SCALE OPERATOR Respiratory Rate 18 08/05/2022 7:00 AM SHADOWGRAPH SCALE OPERATOR Oxygen Saturation 97% 03/26/2024 2:56 PM CDT Inhaled Oxygen Concentration - - Weight 72.5 kg (159 lb 12.8 oz) 03/26/2024 2:56 PM CDT Height 162.6 cm (5' 4 ) 03/26/2024 2:56 PM CDT Body Mass Index 27.43 03/26/2024 2:56 PM CDT Plan of Treatment Not on file Goals Goal Patient Goal Type Associated Problems Recent Progress Patient-Stated? Author CCM Chronic Pain Care Plan Chronic Care Management No Jaja Castelan, RN Note: Problem: Chronic Pain Goals: 1. Minimize [...] on stairs Contact your local community or [facility] for information on exercise, fall prevention programs, or options for improving home safety. Medical Devices Implanted Type Area Associate Professor Of Engineering Device Identifier Shelf Expiration Date Model / Serial / Lot Vascade Mvp 6-12fr Venous Closure [id number] - [id number] Implanted:Qty: 1 on 10/03/2021 by Vinicio Escoto MD at [facility] [employer] 07/07/2023 [id number] / / [id number] Vascade Mvp 6-12fr Venous Closure [id number] - [id number] Implanted:Qty: 1 on 10/03/2021 by Vinicio Escoto MD at [facility] [employer] 07/07/2023 [id number] -[id number] / / [id number] Vascade Mvp 6-12fr Venous Closure [id number] - [id number] Implanted:Qty: 1 on 10/03/2021 by Vinicio Escoto MD at [facility] [employer] 07/07/2023 [id number] -[id number] / / [id number] 113A Implantable Loop Recorder Implantable Loop Recorder Chest Description:Placed Lumbar Fusion- 016 Implanted:05/02 (Quantity not on file) Other - see comments N/A: Spine Lumbar [employer] Solia S 53cm Steroid Elute Bipolar Active Fixation Endocardial [id number] - [id number] - [id number] Implanted:Qty: 1 on 01/23/2022 by Gentry Salas MD at [facility] Pacemaker Right: [employer] 12/30/2023 [id number] / [id number] / XXX [employer] Promri Solia S 60cm Lead Pacing Steroid Eluting [id number] - [id number] - [id number] Implanted:Qty: 1 on 01/23/2022 by Gentry Salas MD at [facility] Pacemaker Right: Ventricle [employer] Inc 11/30/2023 [id number] / [id number] / XXX Woods Overseer Chest [employer] Edora Promri 90i74i0.5mm Dual Chamber Rate Adaptive Unipolar Bipolar [id number] - [id number] - [id number] Implanted:Qty: 1 on 01/23/2022 by Gentry Salas MD at [facility] Left: Chest [employer] Inc 05/31/2023 [id number] / [id number] / XXX Procedures Procedure Name Priority Date/Time Associated Diagnosis Comments DEVICE CHECK - REMOTE Routine 10/01/2024 4:13 AM CDT COLONOSCOPY 08/03/2022 12:16 PM SHADOWGRAPH SCALE OPERATOR from Last 3 Months or Most Recently Relevant to Health Maintenance Results * DEVICE CHECK - REMOTE (10/01/2024 4:13 AM CDT) Anatomical Region Laterality Modality Other 10/01/2024 4:13 AM CDT Narrative 10/21/2024 4:24 PM CDT Interpretation Summary: Battery and Leads (BL) Normal parameters noted on battery and lead(s) --- 75% remaining longevity. Lead impedance, sensing, and threshold trends stable and appropriate. Presenting Rhythm (SD) Atrial Pacing-Ventricular Sensing (AP-VS) --- AP/VS 60 [...] and threshold trends stable andappropriate. Presenting Rhythm (SD) Atrial Pacing-Ventricular Sensing (AP-VS) --- AP/VS 60 [...] CV CARDIAC SERVICES PRO CEDURES Final Result * COLONOSCOPY (08/03/2022 12:16 PM SHADOWGRAPH SCALE OPERATOR) Anatomical Region Laterality Modality Other Narrative Procedure Note Coleen Collins MD - 08/03/2022 12:16 PM CST [facility] Patient Name: Erin Sinha Procedure Date: 08/03/2022 12:16 PM Date of : 1950 Admit Type: Inpatient Age: 72 Gender: Female Attending MD: Coleen Collins M.D. Room: [facility]COPY ROOM 1 Note Status: Finalized Patient Profile: This is a 72 year old female. Patient admitted with hematochezia. Known history of diverticulosis. Shewas on Xarelto which was discontinued couple days ago because of bleeding. Patient continued to have hematochezia and declining hemoglobin level. Colonoscopy for evaluation. Upper endoscopyinitially was normal. She has previous right hemicolectomy surgery. Procedure: Colonoscopy Indications: Last colonoscopy 5 years ago, Hematochezia, Acutepost hemorrhagic anemia Referring MD: Qasim Roman D.O. Providers: Coleen Collins M.D. Impression: - A single bleeding colonic angiodysplastic lesion. Treated with argon plasma coagulation (APC). Clipwas placed. Clip machine hamper maker: Versafe. - Diverticulosis in the entire examined colon. - Internal hemorrhoids. - No specimens collected. Recommendation: - Repeat colonoscopy in 5 years for screeningpurposes. - Continue present medications. Start full liquiddiet today. Monitor hemoglobin every 12 hours. - No Xarelto for 10 days. Medicines: Monitored Anesthesia Care Complications: No immediate complications. Estimated Blood Loss: Estimated blood loss: none. Procedure: Pre-Anesthesia Assessment: - Prior to the procedure, a History and Physicalwas performed, and patient medications and allergieswere reviewed. The patient's tolerance of previous anesthesia was also reviewed. The risks andbenefits of the procedure and the sedation options and risks were discussed with the patient. All questions were answered, and informed consent was obtained. Prior Anticoagulants: The patient has taken Xarelto (rivaroxaban), last dose was 3 days prior to procedure. ASA Grade Assessment: III - A patientwith severe systemic disease. After reviewing the risksand benefits, the patient was deemed in satisfactory condition to undergo the procedure. The benefits, risks and alternatives of theprocedure and sedation were discussed and informed consentwas obtained. All questions were answered. Please referto the signed informed consent document in the medical record. The scope was passed under direct vision.The Pediatric Colonoscope PCF-[id number] was introduced through the anus and advanced to the the ileocolonic anastomosis. The bowel preparation used was Miralax via split dose instruction. The bowel preparation used was bisacodyl tablets via splitdose instruction. The quality of the bowel preparationwas fair. Bowel prep was administered using a splitdose. Findings: The perianal and digital rectal examinations were normal. A single small localized angiodysplastic lesion with bleeding wasfound at the anastomosis. Coagulation for hemostasis using argon plasma at1 liter/minute and 30 razo was successful. To prevent bleeding post-intervention, one hemostatic clip was successfully placed. Clip machine hamper maker: Versafe. There was no bleeding at the end ofthe procedure. Multiple small and large-mouthed diverticula were found in the entire colon. Blood scattered in the entire colon but no other points ofactive bleeding noted within the colon. Internal hemorrhoids were found during retroflexion. The hemorrhoids were small in size. Electronically signed by Coleen Collins M.D. Coleen Collins M.D. 08/03/2022 1:21:43 PM Number of Addenda: 0 Note Initiated On: 08/03/2022 12:16 PM Procedure Code(s): --- Professional --- 52795, Colonoscopy, flexible; with control of bleeding, any method Diagnosis Code(s): --- Professional --- K55.21, Angiodysplasia of colon with hemorrhage K64.8, Other hemorrhoids K92.1, Melena (includes Hematochezia) D62, Acute posthemorrhagic anemia K57.30, Diverticulosis of large intestine without perforation orabscess without bleeding CPT copyright 2020 [employer]. All rights reserved. The codes documented in this report are preliminary and upon music theory professor reviewmay be revised to meet current compliance requirements. Recognized by the [employer] for promoting quality in endoscopy Coleen Collins MD ENDOSCOPY PROCEDURES Final Result from Last 3 Months or Most Recently Relevant to Health Maintenance Insurance [facility] MEDICARE [facility] Member Subscriber Plan / Payer (Ef fective 2023-Present) Name:Erin Sinha Relation to Subscriber:Self Name:Erin Sinha Payer ID:[id number] (NAIC) Type:[employer]ET[employer] MEDICARE Address: [id number] [place] [id number] [employer] MEDICARE GOLD Member Subscriber Plan / Payer (Ef fective 2024-Present) Name:Bharath Erin L Relation to Subscriber:Self Name:Erin Sinha Payer ID:[id number] (NAIC) Type:[employer]ET[employer] MEDICARE Address: [address] [place] [id number] [place] [id number] Advance Directives For more information, please contact: [phone] * Full Code (Latest Code Status on File) Date Activated Date Inactivated Comments 08/03/2022 1:00 PM 08/05/2022 5:21 PM * Full Code Date Activated Date Inactivated Comments 08/03/2022 12:25 PM 08/03/2022 1:00 PM * Full Code Date Activated Date Inactivated Comments 08/01/2022 3:51 PM 08/03/2022 12:25 PM * Full Code Date Activated Date Inactivated Comments 08/01/2022 10:29 AM 08/01/2022 3:51 PM * Full Code Date Activated Date Inactivated Comments 08/01/2022 10:29 AM 08/01/2022 10:29 AM Care Teams Hospitality Coordinator Relationship Specialty Start Date End Date Dallin Cifuentes MD PCP - General Family Practice 07/19/23 Vinicio Escoto MD Consulting Physician Cardiology 08/11/21 Titus Can MD Referring Physician Cardiovascular Disease 01/24/22 Coleen Collins MD Consulting Physician Gastroenterology 08/05/22
--- OUTSIDE RECORDS SUMMARY | 2024-10-22 19:00 | XMS_ITS | Clinical Summary ---
Author Organization [facility] System Address [address] [place] [address] Care Team Providers Care Landfill Attendant Name Role Phone Alexander Sifuentes NP Primary Care Provider [phone] Social History Tobacco Use Types Packs/Day Years Used Date Smoking Tobacco: Never Assessed Comments Unknown Sex and Gender Information Value Date Recorded Sex Assigned at Not on file Legal Sex Female 1:36 PM CDT Gender Identity Not on file Sexual Orientation Not on file Plan of Treatment Health Maintenance Due Date Last Done Comments Hepatitis C 1968 Annual Medicare Wellness Visit 2013 Dexa Scan (General) 2013 Zoster Vaccines (2 of 2) 12/14/2022 10/19/2022 RSV Immunization or 60+ Years (1 - 1-dose 75+ series) 2023 COVID-19 Vaccine ( - 2023-2 5 season) 2024 06/15/2021, 09/03/2020, 08/05/2020 DTaP, Tdap and Td Vaccines ( 2 - Td or Tdap) 10/19/2032 10/19/2022 Pneumococcal Vaccine: 50+ Years Completed 07/30/2017, 07/10/2016 Meningococcal B Vaccine Aged Out No l onger eligible based on patient's age to complete this topic Meningococcal Vaccine Aged Out No dianne zeinab eligible based on patient's age to complete this topic RSV Immunizations Under 20 Months Aged Out No longer eligible b ased on patient's age to complete this topic Medical Devices Implanted Type Area Wire Stripping Machine Operator Device Identifier Shelf Expiration Date Model / Serial / Lot Ra Lead-01/23/2022 Implanted:Qty: 1 on 01/23/2022 by Gentry Salas MD Lead Implant Right: [employer] SOLIA S 53 [id number] / [id number] / Rv Lead-01/23/2022 Implanted:Qty: 1 on 01/23/2022 by Gentry Salas MD Lead Implant Right: Ventricle BIOTRONIK SOLIA S 60 [id number] / [id number] / Pacemaker-01/23 Implanted:Qty: 1 on 01/23/2022 by Gentry Salas MD Pacemaker Chest BIOTRONIK EDORA 8 NEAL [id number] / [id number] / Description:MR Conditional u nder following conditions: Static magnetic field of 1.5 T or 3 T, max spatial gradient field of 3000 gauss/cm or less, Max slew rate 200 T/m/s, Max whole body JUSTO of 2 w/kg or less, Head JUSTO 3.2 W/kg or less, Max 30 minutes active scan time in 60 [place] [address] [employer] Care Teams Landfill Attendant Relationship Specialty Start Date End Date Alexander Sifuentes NP PCP - General 03/12/24
--- OUTSIDE RECORDS SUMMARY | 2024-10-22 19:00 | XMS_ITS | Clinical Summary ---
Author Organization [facility] Healthcare Address [address] [place] [address] Care Team Providers Care Triage Assistant Name Role Phone Vinicio Escoto MD Unavailable [phone] Titus Can MD Unavailable Coleen Collins MD Unavailable [phone] Dallin Cifuentes MD Primary Care Provider [phone] Allergies Active Allergy Reactions Criticality Noted Date [...] (01/23/2022): Added automatically from request for surgery [id number] Hypothyroidism 08/09/2021 Assessment & Plan (08/10/2021 8:49 AM STRAIGHTENER HAND): TSH wnl - continue home levothyroxine Assessment & Plan (08/09/2021 6:25 AM STRAIGHTENER HAND): TSH wnl - continue home levothyroxine Obesity (BMI 30.0-34.9) 08/08/2021 Assessment & Plan (08/10/2021 8:49 AM STRAIGHTENER HAND): - weight loss encouraged Assessment & Plan (08/09/2021 9:26 AM STRAIGHTENER HAND): - weight loss encouraged Assessment & Plan (08/08/2021 5:33 PM STRAIGHTENER HAND): - weight loss encouraged Depression 08/08/2021 Assessment & Plan (08/10/2021 8:49 AM STRAIGHTENER HAND): Mood appears stable - continue home cymbalta Assessment & Plan (08/09/2021 9:26 AM STRAIGHTENER HAND): Mood appears stable - continue home cymbalta Assessment & Plan (08/08/2021 5:35 PM STRAIGHTENER HAND): Mood appears stable - continue home cymbalta Insomnia 08/08/2021 Assessment & Plan (08/10/2021 8:49 AM STRAIGHTENER HAND): - continue home trazodone, will order ramelteon in place of melatonin Assessment & Plan (08/09/2021 9:27 AM STRAIGHTENER HAND): - continue home trazodone, will order ramelteon in place of melatonin Assessment & Plan (08/08/2021 5:36 PM STRAIGHTENER HAND): - continue home trazodone, will order ramelteon in place of melatonin DOMONIQUE (obstructive sleep apnea) 02/27/2020 Assessment & Plan (08/10/2021 8:49 AM STRAIGHTENER HAND): Intolerant to CPAP. Has oral appliance at home, did not bring with her Assessment & Plan (08/09/2021 9:26 AM STRAIGHTENER HAND): Intolerant to CPAP. Has oral appliance at home, did not bring with her Assessment & Plan (08/08/2021 5:33 PM STRAIGHTENER HAND): Intolerant to CPAP. Has oral appliance at home, did not bring with her Status post placement of implantable loop record er 01/26/2020 Overview (08/16/2021): Biotronik-Biomonitor III Implantable Loop Recorder. Dx; Syncope, Afib. DOI 01/23/2020-Kathleen. Biotronik remote home monitoring. 08/16/2021-remote monitoring transferred to [place]-Dr Escoto. Recurrent syncope 01/16/2020 Hypersomnolence 01/16/2020 Paroxysmal atrial flutter 09/10/2019 Chest pain 09/10/2019 Black stools 06/07/2018 Paroxysmal atrial fibrillation (CMS/HCC) 018 Assessment & Plan (10/04/2021 12:10 PM CDT): S/p successful Afib ablation Continue xarelto, Continue ppi -continue amiodarone -anticipate d/c home today Assessment & Plan (08/10/2021 8:43 AM STRAIGHTENER HAND): Symptomatic paroxysmal atrial fibrillation, Admitted to sotalol [...] prior Assessment & Plan (08/09/2021 9:26 AM STRAIGHTENER HAND): Symptomatic paroxysmal atrial fibrillation, Admitted to sotalol [...] prior Assessment & Plan (08/08/2021 5:29 PM STRAIGHTENER HAND): Symptomatic paroxysmal atrial fibrillation, Admitted to sotalol [...] 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 10/12/2017 Essential hypertension 10/12/2017 Hyperlipidemia LDL goal <70 10/12/2017 Jaw pain 10/12/2017 Pre-syncope 10/12/2017 Shortness of breath 10/12/2017 Acute diverticulitis Acute blood loss anemia Encounters Date Type Department Care Team Description 10/01/2024 Orders Only [facility] Cardiology [address] [facility] Medical Office Building [address] [place] [address] Vinicio Escoto MD 08/13/2024 Telephone [facility] Cardiology [address] [facility] 8[address] [place] [address] [place] [address] Vinicio Escoto MD from Last 3 Months Immunizations Immunization Administration Dates Next Due Influenza, Quadrivalent, Hig h Dose, Preservative Free, Intrr 08/05/2022 Surgical History Surgery Date Site/Laterality Comments BLADDER SUSPENSION 07/02/1995 - 07/01/1996 bladder suspension BACK SURGERY HERNIA REPAIR HYSTERECTOMY CHOLECYSTECTOMY APPENDECTOMY RIGHT COLECTOMY 07/02/2014 - 07/01/2015 ROTATOR CUFF REPAIR FACET BLOCK LUMBAR SACRAL 1 LEVEL LEFT 04/01/2019 Bilateral IR INJECTION ARTHROGRAM SI JOINT BILATERAL WITH GUIDANCE 05/20/2019 Bilateral CATARACT EXTRACTION 07/02/2009 - 07/01/2010 COLON SURGERY 07/02/2014 - 07/01/2015 SPINE SURGERY 05/02/2016 - 05/31/2016 Medical History Medical History Date Comments Depression Depression Hypothyroidism Hypothyroidism Hx Other Medical 2005 Migraines Anxiety Arthritis Atrial fibrillation (HCC) Gastric reflux Hiatal hernia Hypertension Migraines Peripheral neuropathy Obesity Osteoporosis Peptic ulceration Urinary tract infection Bowel obstruction (HCC) A-fib (HCC) Migraine Low back pain Anemia Clotting disorder Sleep apnea 2020 GI (gastrointestinal bleed) 2019 Family History Medical History Relation Name Comments Heart disease Brother 1 Hypertension Brother 1 Heart disease Brother 2 Vinayak Edna Hypertension Brother 2 Vinayak Edna Anemia Daughter 1 Miranda Brambila Cancer Daughter 1 Miranda Brambila Mental illness Daughter 2 Luda Prashant Arthritis Father Al Kalyn Heart attack Father Al Kalyn Heart disease Father Al Edna Hypertension Father Al Kalyn Stroke Father Al Kalyn Stroke; Cause o f : Stroke Cancer Maternal Grandmother Rajani Brown Liver cancer Maternal Grandmother Rajani Brown Arthritis Mother Mariam Cathorall Atrial fibrillation Mother Mariam Cathorall Coronary artery disease Mother Mariam Cathorall C oronary Artery Disease; Hearing loss Mother Mariam Cathorall Heart attack Mother Mariam Cathorall Heart disease Mother Mariam Cathorall Hypertension Mother Mariam Cathorall Lupus Other Arthritis Sister 1 Hypertension Sister 1 Arthritis Sister 2 Marika Meade Depression Sister 2 Marika Meade Hypertension Sister 2 Marika Meade Relation Name Status Comments Brother 1 Brother 2 Vinayak Mccain Daughter 1 Miranda Brambila Daughter 2 Luda Cerda Father Al Mccain (Age 77) Maternal Grandmother Rajani Hernandez Mother Mariam Hoang Alive Other Sister 1 Sister 2 Marika Meade Social History Tobacco Use Types Packs/Day Years [...] often do you attend chur ch or mormonism services? More than 4 times per year 08/02/2022 Do you belong to any clubs o r organizations such as restorationist groups, unions, fraternal or athletic groups, or [...] on file Legal Sex Female 12:34 AM STRAIGHTENER HAND Gender Identity Not on file Sexual Orientation Not on file Occupation Industry Job Start Date Job End Date retired Not on file Not on file Not on file Obstetrics History Last Filed Vital Signs Vital Sign Reading Time Taken Comments Blood Pressure 146/86 03/26/2024 2:56 PM CDT Pulse 92 03/26/2024 2:56 PM CDT Temperature 36.9 C (98.4 F) 08/05/2022 7:00 AM STRAIGHTENER HAND Respiratory Rate 18 08/05/2022 7:00 AM STRAIGHTENER HAND Oxygen Saturation 97% 03/26/2024 2:56 PM CDT Inhaled Oxygen Concentration - - Weight 72.5 kg (159 lb 12.8 oz) 03/26/2024 2:56 PM CDT Height 162.6 cm (5' 4 ) 03/26/2024 2:56 PM CDT Body Mass Index 27.43 03/26/2024 2:56 PM CDT Plan of Treatment Health Maintenance Due Date Last Done Comments Depression Screening 1950 Hepatitis C Screening 1950 Osteoporosis Screening-Bone Density Scan 1950 DTaP/Tdap/Td Vaccine (1 - Tdap) 1959 Hepatitis B Screening 1966 Zoster Vaccine (1 of 2) 1998 Well Visit 65+ 2013 Fall Risk Assessment 08/05/2023 08/05/2022, 04/06/2020, 07/22/2019, Additional history exists Covid-19 Vaccine ( - 2023-2 5 season) 2024 06/15/2021, 09/03/2020, 08/05/2020 Influenza Vaccine (Season Ended) 2025 08/05/2022, 06/15/2021, 04/15/2020, Additional history exists Pneumococcal vaccine 65+ Completed 07/30/2017, 03/2017 Colon Cancer Screening-CT Colonography Discontinued 08/03/2022 Colon Cancer Screening-Colonoscopy Discontinued 08/03/2022 Colon Cancer Screening-DNA Stool Discontinued 08/03/19 23 Colon Cancer Screening-FIT Discontinued 08/03/2022 Colon Cancer Screening-FOBT Discontinued 08/03/2022 Colon Cancer Screening-Sigmoidoscopy Discontinued 08/03/2022 Colorectal Cancer Screening Discontinued Goals Goal Patient Goal Type Associated Problems [...] on stairs Contact your local community or senior center for information on exercise, fall prevention programs, or options for improving home safety. Medical Devices Implanted Type Area Customizer Device Identifier Shelf Expiration Date Model / Serial / Lot Vascade Mvp 6-12fr Venous Closure [id number] - [id number] Implanted:Qty: 1 on 10/03/2021 by Vinicio Escoto MD at [facility] [employer] 07/07/2023 800-612C -[id number] / / [id number] Vascade Mvp 6-12fr Venous Closure [id number] - [id number] Implanted:Qty: 1 on 10/03/2021 by Vinicio Escoto MD at [facility] [employer] 07/07/2023 [id number] -[id number] / / [id number] Vascade Mvp 6-12fr Venous Closure [id number] - [id number] Implanted:Qty: 1 on 10/03/2021 by Vinicio Escoto MD at [facility] [employer] 07/07/2023 [id number] -[id number] / / [id number] Implantable Loop Recorder Implantable Loop Recorder Chest Description:Placed Lumbar Fusion- [id number] Implanted:05/02 (Quantity not on file) Other - see comments N/A: Spine Lumbar [employer] Solia S 53cm Steroid Elute Bipolar Active Fixation Endocardial [id number] - [id number] - [id number] Implanted:Qty: 1 on 01/23/2022 by Gentry Salas MD at [facility] Pacemaker Right: Atria [employer] 12/30/2023 [id number] / [id number] / XXX [employer] Promri Solia S 60cm Lead Pacing Steroid Eluting 847128 - [id number] - [id number] Implanted:Qty: 1 on 01/23/2022 by Gentry Salas MD at [facility] Pacemaker Right: Ventricle [employer] 11/30/2023 [id number] / [id number] / XXX Senior Network Architect Chest [employer] Edora Promri [id number] Dual Chamber Rate Adaptive Unipolar Bipolar 688600 - [id number] - [id number] Implanted:Qty: 1 on 01/23/2022 by Gentry Salas MD at [facility] Left: Chest [employer] 05/31/2023 [id number] / [id number] / XXX Procedures Procedure Name Priority Date/Time Associated Diagnosis Comments DEVICE CHECK - REMOTE Routine 10/01/2024 4:13 AM CDT COLONOSCOPY 08/03/2022 12:16 PM STRA[facility]ENER HAND from Last 3 Months or Most Recently Relevant to Health Maintenance Results * DEVICE CHECK - REMOTE (10/01/2024 4:13 AM CDT) Anatomical Region Laterality Modality Other 10/01/2024 4:13 AM CDT Narrative 10/21/2024 4:24 PM CDT Interpretation Summary: Battery and Leads (BL) Normal parameters noted on battery and lead(s) --- 75% remaining longevity. Lead impedance, sensing, and threshold trends stable and appropriate. Presenting Rhythm (DC) Atrial Pacing-Ventricular Sensing (AP-VS) --- AP/VS 60 [...] and threshold trends stable andappropriate. Presenting Rhythm (DC) Atrial Pacing-Ventricular Sensing (AP-VS) --- AP/VS 60 [...] Final Result * COLONOSCOPY (08/03/2022 12:16 PM STRAIGHTENER HAND) Anatomical Region Laterality Modality Other Narrative Procedure Note Coleen Collins MD - 08/03/2022 12:16 PM CST [facility] Patient Name: Erin Sinha Procedure Date: 08/03/2022 12:16 PM Date of : 1950 Admit Type: Inpatient Age: 72 Gender: Female Attending MD: Coleen Collins M.D. Room: [facility] ENDOSCOPY ROOM 1 Note Status: Finalized Patient [...] argon plasma coagulation (APC). Clipwas placed. Clip axle bearing polisher: [employer]. - Diverticulosis in the entire examined colon. [...] passed under direct vision.The Pediatric Colonoscope [id number] was introduced through the anus and advanced [...] one hemostatic clip was successfully placed. Clip axle bearing polisher: [employer]. There was no bleeding at the end [...] 12:16 PM Procedure Code(s): --- Professional --- 85638, Colonoscopy, flexible; with control of bleeding, any method Diagnosis Code(s): --- Professional --- K55.21, Angiodysplasia of colon with hemorrhage K64.8, Other hemorrhoids K92.1, Melena (includes Hematochezia) D62, Acute posthemorrhagic anemia K57.30, Diverticulosis of large intestine without perforation orabscess without bleeding CPT copyright 2020 [employer]. All rights reserved. The codes documented in this report are preliminary and upon outpatient coder reviewmay be revised to meet current compliance requirements. Recognized by the [employer] for promoting quality in endoscopy Coleen Collins MD ENDOSCOPY PROCEDURES Final Result from Last 3 Months or Most Recently Relevant to Health Maintenance Insurance AETNA MEDICARE GOLD AETNA MEDICARE GOLD Advance Directives For more information, please contact: [phone] * Full Code (Latest Code Status on [...] 10:29 AM 08/01/2022 10:29 AM Care Teams Triage Assistant Relationship Specialty Start Date End Date Dallin Cifuentes MD PCP - General Family Practice 07/19/23 Vinicio Escoto MD Consulting Physician Cardiology 08/11/21 Titus Can MD Referring Physician Cardiovascular Disease 01/24/22 Coleen Collins MD Consulting Physician Gastroenterology 08/05/22
--- NOTE | 2024-10-22 19:51 | ED_ITS ---
HPI - Extremity Injury (Upper) General Chief Complaint: Extremity Injury, Upper Stated Complaint: fall wrist injury Time Seen by Provider: 10/22/24 19:48 History of Present Illness HPI narrative: 74-year-old female with history of AFib on Xarelto presents to the emergency department with daughter at bedside after ground level fall that occurred prior to arrival. Patient states she was unloading groceries in the kitchen when she lost her footing and fell to the ground. She hit the left side of her head on the refrigerator, she did not lose consciousness. She landed with her left arm outstretched. She is reporting pain to the left elbow, left hand and wrist. She is endorsing some tingling to her left hand but denies numbness. She denies back pain or other injuries acquired. Related Data Home Medications ?Medication ?Instructions ?Recorded ?Confirmed ?Last Taken ?Type rivaroxaban 20 mg tablet (Xarelto) 20 mg PO DAILY 05/17/19 08/06/24 11/15/19 History carvedilol 25 mg tablet 12.5 mg PO Q12H 06/15/21 08/06/24 Unknown History trazodone 50 mg tablet 25 mg PO QHS PRN Anxiety 06/15/21 08/06/24 Unknown History calcium 600 mg capsule 600 mg PO DAILY 09/13/21 08/06/24 Unknown History duloxetine 60 mg capsule,delayed 60 mg PO DAILY 11/28/23 08/06/24 Unknown History release sertraline 100 mg tablet 100 mg PO DAILY 06/09/24 08/06/24 Unknown History Allergies Allergy/AdvReac Type Severity Reaction Status Date / Time ANTONIA Inhibitors Allergy Mild Cough Verified 09/19/24 13:04 Penicillins Allergy Unknown DIFFICULTY Verified 09/19/24 13:04 BREATHING /RASH Review of Systems Review of Systems: All systems reviewed & are unremarkable except as noted in HPI and below PMFSH Past Medical History Medical History Monoclonal gammopathy BMI 27.0-27.9,adult Cerebrovascular disease Peripheral neuropathy Occipital neuralgia of right side Headache around the eyes Excessive thirst Urinary frequency Abnormality of heart beat Constipation Nausea Coughing Chest tightness Hoarseness Vertigo Light headedness Chills Fever Unintentional weight loss Right shoulder pain Osteoporosis Sleep apnea Wears glasses Vision changes Dizziness Left knee pain Obstructive sleep apnea Screening for breast cancer Postmenopausal History of GI bleed Hyperlipidemia Diverticulitis Bowel obstruction Anxiety Arthritis UTI (urinary tract infection) Endometriosis GERD (gastroesophageal reflux disease) Ulcer A-fib Paroxysmal; s/p ablation 10/21 Mitral valve prolapse Neuropathy TIA (transient ischemic attack) Cataracts, bilateral Chronic low back pain Recurrent UTI Hypothyroidism Hypertension Fibromyalgia Vitamin D deficiency Depression Surgical History Surgical History History of permanent cardiac pacemaker placement H/O sinus surgery History of biopsy of bladder H/O cystoscopy H/O tubal ligation H/O inguinal hernia repair History of colon resection History of cardiac cath H/O esophageal hernia repair History of bladder suspension procedure H/O repair of rotator cuff H/O: hysterectomy History of cholecystectomy History of spinal fusion History of appendectomy Family History Family History Sibling Acute myocardial infarction Daughter Metastatic breast cancer Daughter Chiari malformation Mother Hypertension Family history of heart disease in male family member before age 55 Family history of cardiovascular disease Acute myocardial infarction Father Family history of diabetes mellitus in first degree relative Family history of heart disease in male family member before age 55 Cerebrovascular accident Sibling Patient's sister is in good health Patient's brother is in good health, Onset Age: 38 Other Arthritis Breast cancer Depression Family history of malignant neoplasm Heart disease Neuropathy Social History Social History Social History: The patient has 2 daughters. She has living will and desires to be a full code. She lives with her . She retired from [employer]. 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 HEAD: Normocephalic, atraumatic. EYES: EOMI. ENT: Nares clear, no rhinorrhea or epistaxis. Mucous membranes moist. NECK: Minimal midline cervical spinous tenderness without crepitus, step-offs or deformities BACK: No midline thoracolumbar spinous tenderness, crepitus, step-offs or deformities CHEST: Clear to auscultation. No respiratory distress. HEART: Regular rate and rhythm. No murmur heard. Normal peripheral pulses. ABDOMEN: Soft, nontender, nondistended, normal active bowel sounds. EXTREMITIES: LUE: No TTP to shoulder. Minimal tenderness to the left elbow with no obvious deformity. Tenderness to the distal radius with edema, no overlying skin changes or ecchymosis. Limited range of motion of wrist secondary to pain. Tenderness diffusely to the left thumb and overlying the scaphoid. Patient has full range of motion of all digits. Radial, median and ulnar nerves are intact. Sensation is intact throughout. Radial pulse 2 +. Cap refill less than 2 in all digits. Compartments are soft. No tenderness remainder of upper lower extremities. SKIN: Warm, dry, no rash. NEURO: No focal deficits. Alert and oriented x4 Course Vital Signs Vital signs: Vital Signs Temperature 97.6 F 10/22/24 18:58 Pulse Rate 59 L 10/22/24 18:58 Respiratory Rate 16 10/22/24 18:58 Blood Pressure 160/73 H 10/22/24 18:58 Pulse Oximetry 97 10/22/24 18:58 Temperature 97.6 F 10/22/24 18:58 Pulse Rate 59 L 10/22/24 18:58 Respiratory Rate 16 10/22/24 18:58 Blood Pressure 160/73 H 10/22/24 18:58 Pulse Oximetry 97 10/22/24 18:58 MDM - Extremity Injury (Upper) MDM Narrative Medical decision making narrative: 74-year-old female presents to the emergency department for a ground level mechanical fall that occurred prior to arrival. Patient is anticoagulated on Xarelto for AFib. She did hit her head but did not lose consciousness. She is neurovascularly intact. She is endorsing pain to her neck, left elbow, and most notably to her left wrist. Triage vitals are stable. Exam is significant for the above. CT brain shows no acute intracranial abnormality. CT cervical spine shows straightening and slight reversal of normal curvature of the cervical spine which is likely muscular in origin. Degenerative disease without acute fracture. X-ray of the left hand shows degenerative disease without acute fracture dislocation. X-ray of the left elbow shows no acute fracture or dislocation. X-ray of the left for shows nondisplaced fracture of the distal metaphysis of the left radius consistent with presentation. Patient has intact radial pulses, intact radial, median and ulnar nerves. Cap refills less than 2 throughout. Compartments are soft. Patient was updated on results. She was given [place] for pain and placed in a sugar-tong splint and sling. Patient is reporting persistent pain. I did remove the splint to ensure she was not developing compartment syndrome, compartments do remain soft and she remains neurovascularly intact. Splint was replaced. She was given IM Dilaudid. Shared decision making regarding disposition, specifically up patient follow-up versus admission for pain control. Patient would like to go home and her daughter and is agreement with this. Will provide Tylenol for pain, oxycodone for breakthrough pain. Advised rice and follow-up with orthopedics. She is established with Dr. Sethi. Strict ED return precautions discussed. She is agreeable with the plan verbalized understanding. Discharged in stable condition. Discharge Plan Discharge Clinical Impression: Distal radial fracture Qualifiers: Encounter type: initial encounter Fracture type: closed Fracture morphology: unspecified fracture morphology Laterality: left Qualified Code(s): S52.502A - Unspecified fracture of the lower end of left radius, initial encounter for closed fracture Closed head injury Qualifiers: Encounter type: initial encounter Qualified Code(s): S09.90XA - Unspecified injury of head, initial encounter Patient Disposition: Home Condition: Stable Instructions: Antibiotic Form, Wrist Fracture in Adults (ED), Splint Care (ED) Additional Instructions: You were evaluated in the emergency department after a fall. The CT of your head and neck show no acute findings. You were found to have a fracture of her distal radius which is and wrist as discussed. Please call your orthopedist to schedule a follow-up appointment. Take Tylenol as needed for pain and oxycodone as needed for breakthrough pain. Return to the emergency department if you develop vision changes, focal numbness or weakness, confusion, you lose consciousness, develop increasing pain your left wrist or forearm, numbness in your hand or other concerning symptoms. Patient Language: Hebrew Prescriptions: New acetaminophen 500 mg capsule 500 mg PO Q6H PRN (Reason: pain) Qty: 14 0RF oxycodone 5 mg capsule 5 mg PO Q6H PRN (Reason: pain) Qty: 14 0RF No Action calcium 600 mg Capsule 600 mg PO DAILY Xarelto 20 mg tablet 20 mg PO DAILY alprazolam [Xanax] 1 mg tablet 1 mg PO BID PRN (Reason: anxiety) Qty: 40 0RF baclofen 20 mg tablet 20 mg PO DAILY PRN (Reason: muscle spasm) Qty: 60 1RF rosuvastatin 20 mg tablet 20 mg PO DAILY Qty: 90 1RF tramadol 50 mg tablet 50 mg PO Q8H PRN (Reason: pain) Qty: 30 1RF carvedilol 25 mg tablet 12.5 mg PO Q12H Rx Instructions: must administer with a meal/food trazodone 50 mg tablet 25 mg PO QHS PRN (Reason: Anxiety) duloxetine 60 mg capsule,delayed release(DR/EC) 60 mg PO DAILY sertraline 100 mg tablet 100 mg PO DAILY gabapentin 300 mg capsule See Rx Instructions .ROUTE .COMPLEX Qty: 180 1RF Dose Instruction: Take 1 capsule by mouth twice daily Rx Instructions: Take 1 capsule by mouth twice daily levothyroxine 75 mcg tablet See Rx Instructions .ROUTE .COMPLEX Qty: 90 1RF Dose Instruction: Take 1 tablet by mouth once daily Rx Instructions: Take 1 tablet by mouth once daily Follow-up/Referrals: Qasim Roman DO [Primary Care Provider] - Rufus Sethi MD [Physician] -
--- OUTSIDE RECORDS SUMMARY | 2024-10-22 20:46 | XMS_ITS | Referral Summary ---
Author Organization [facility] Healthcare Address [address] [place] [address] Care Team Providers Care Hospital Librarian Name Role Phone Vinicio Escoto MD Unavailable [phone] Titus Can MD Unavailable Coleen Collins MD Unavailable [phone] Dallin Cifuentes MD Primary Care Provider [phone] Encounters Date Type Department Care Team Description 10/01/2024 Orders Only [facility] Cardiology [address] [facility] Medical Office Building [address] [place] [address] Vinicio Escoto MD 08/13/2024 Telephone [facility] Cardiology [address] [facility] Advanced Medicine 8th [place] [address] [place] [address] Vinicio Escoto MD from Last [...] (01/23/2022): Added automatically from request for surgery [id number] Hypothyroidism 08/09/2021 Assessment & Plan (08/10/2021 8:49 AM MIXER BLENDER): TSH wnl - continue home levothyroxine Assessment & Plan (08/09/2021 6:25 AM MIXER BLENDER): TSH wnl - continue home levothyroxine Obesity (BMI 30.0-34.9) 08/08/2021 Assessment & Plan (08/10/2021 8:49 AM MIXER BLENDER): - weight loss encouraged Assessment & Plan (08/09/2021 9:26 AM MIXER BLENDER): - weight loss encouraged Assessment & Plan (08/08/2021 5:33 PM MIXER BLENDER): - weight loss encouraged Depression 08/08/2021 Assessment & Plan (08/10/2021 8:49 AM MIXER BLENDER): Mood appears stable - continue home cymbalta Assessment & Plan (08/09/2021 9:26 AM MIXER BLENDER): Mood appears stable - continue home cymbalta Assessment & Plan (08/08/2021 5:35 PM MIXER BLENDER): Mood appears stable - continue home cymbalta Insomnia 08/08/2021 Assessment & Plan (08/10/2021 8:49 AM MIXER BLENDER): - continue home trazodone, will order ramelteon in place of melatonin Assessment & Plan (08/09/2021 9:27 AM MIXER BLENDER): - continue home trazodone, will order ramelteon in place of melatonin Assessment & Plan (08/08/2021 5:36 PM MIXER BLENDER): - continue home trazodone, will order ramelteon in place of melatonin DOMONIQUE (obstructive sleep apnea) 02/27/2020 Assessment & Plan (08/10/2021 8:49 AM MIXER BLENDER): Intolerant to CPAP. Has oral appliance at home, did not bring with her Assessment & Plan (08/09/2021 9:26 AM MIXER BLENDER): Intolerant to CPAP. Has oral appliance at home, did not bring with her Assessment & Plan (08/08/2021 5:33 PM MIXER BLENDER): Intolerant to CPAP. Has oral appliance at home, did not bring with her Status post placement of implantable loop record er 01/26/2020 Overview (08/16/2021): Biotronik-Biomonitor III Implantable Loop Recorder. Dx; Syncope, Afib. DOI 01/23/2020-Kathleen. Biotronik remote home monitoring. 08/16/2021-remote monitoring transferred to [place]-Dr Escoto. Recurrent syncope 01/16/2020 Hypersomnolence 01/16/2020 Paroxysmal atrial flutter 09/10/2019 Chest pain 09/10/2019 Black stools 06/07/2018 Paroxysmal atrial fibrillation (CMS/HCC) 018 Assessment & Plan (10/04/2021 12:10 PM CDT): S/p successful Afib ablation Continue xarelto, Continue ppi -continue amiodarone -anticipate d/c home today Assessment & Plan (08/10/2021 8:43 AM MIXER BLENDER): Symptomatic paroxysmal atrial fibrillation, Admitted to sotalol [...] prior Assessment & Plan (08/09/2021 9:26 AM MIXER BLENDER): Symptomatic paroxysmal atrial fibrillation, Admitted to sotalol [...] prior Assessment & Plan (08/08/2021 5:29 PM MIXER BLENDER): Symptomatic paroxysmal atrial fibrillation, Admitted to sotalol [...] artery disease of n ative artery of [place] heart with stable angina pectoris 10/12/2017 Essential [...] often do you attend chur ch or catholic services? More than 4 times per year 08/02/2022 Do you belong to any clubs o r organizations such as oriental orthodox groups, unions, fraternal or athletic groups, or [...] on file Legal Sex Female 12:34 AM MIXER BLENDER Gender Identity Not on file Sexual Orientation Not on file Occupation Industry Job Start Date Job End Date retired Not on file Not on file Not on file Last Filed Vital Signs Vital Sign Reading Time Taken Comments Blood Pressure 146/86 03/26/2024 2:56 PM CDT Pulse 92 03/26/2024 2:56 PM CDT Temperature 36.9 C (98.4 F) 08/05/2022 7:00 AM MIXER BLENDER Respiratory Rate 18 08/05/2022 7:00 AM MIXER BLENDER Oxygen Saturation 97% 03/26/2024 2:56 PM CDT [...] on stairs Contact your local community or [facility] for information on exercise, fall prevention programs, or options for improving home safety. Medical Devices Implanted Type Area Crusher Wet Ground Mica Device Identifier Shelf Expiration Date Model / Serial / Lot Vascade Mvp 6-12fr Venous Closure [id number] - [id number] Implanted:Qty: 1 on 10/03/2021 by Vinicio Escoto MD at [facility] [employer] 07/07/2023 800-612C -10U / / [id number] 113A Vascade Mvp 6-12fr Venous Closure [id number] - [id number] Implanted:Qty: 1 on 10/03/2021 by Vinicio Escoto MD at [facility] [employer] 07/07/2023 800-612C -10U / / [id number] 113A Vascade Mvp 6-12fr Venous Closure [id number] - [id number] Implanted:Qty: 1 on 10/03/2021 by Vinicio Escoto MD at [facility] [employer] 07/07/2023 800-612C -10U / / [id number] 113A Implantable Loop Recorder Implantable Loop Recorder Chest Description:Placed Lumbar Fusion- 016 Implanted:05/02 (Quantity not on file) Other - see comments N/A: Spine Lumbar Biotronik Inc Solia S 53cm Steroid Elute Bipolar Active Fixation Endocardial [id number] - [id number] - [id number] Implanted:Qty: 1 on 01/23/2022 by Gentry Salas MD at [facility] Pacemaker Right: Atria [employer] Inc 12/30/2023 [id number] / [id number] / XXX Biotronik Inc Promri Solia S 60cm Lead Pacing Steroid Eluting 468189 - [id number] - [id number] Implanted:Qty: 1 on 01/23/2022 by Gentry Salas MD at [facility] Pacemaker Right: Ventricle [employer] Inc 11/30/2023 [id number] / [id number] / XXX Rechecker Chest [employer] Edora Promri 74j38d4.5mm Dual Chamber Rate Adaptive Unipolar Bipolar 266965 - [id number] - [id number] Implanted:Qty: 1 on 01/23/2022 by Gentry Salas MD at [facility] Left: Chest [employer] Inc 05/31/2023 [id number] / [id number] / XXX Procedures Procedure Name Priority Date/Time Associated Diagnosis Comments DEVICE CHECK - REMOTE Routine 10/01/2024 4:13 AM CDT COLONOSCOPY 08/03/2022 12:16 PM MIXER BLENDER from Last 3 Months or Most Recently Relevant to Health Maintenance Results * DEVICE CHECK - REMOTE (10/01/2024 4:13 AM CDT) Anatomical Region Laterality Modality Other 10/01/2024 4:13 AM CDT Narrative 10/21/2024 4:24 PM CDT Interpretation Summary: Battery and Leads (BL) Normal parameters noted on battery and lead(s) --- 75% remaining longevity. Lead impedance, sensing, and threshold trends stable and appropriate. Presenting Rhythm (RI) Atrial Pacing-Ventricular Sensing (AP-VS) --- AP/VS 60 [...] and threshold trends stable andappropriate. Presenting Rhythm (RI) Atrial Pacing-Ventricular Sensing (AP-VS) --- AP/VS 60 [...] Final Result * COLONOSCOPY (08/03/2022 12:16 PM MIXER BLENDER) Anatomical Region Laterality Modality Other Narrative Procedure Note Coleen Collins MD - 08/03/2022 12:[address] [facility] Patient Name: Erin Sinha Procedure Date: 08/03/2022 12:16 PM Date of : 1950 Admit Type: Inpatient Age: 72 Gender: Female Attending MD: Coleen Collins M.D. Room: [facility] ENDOSCOPY ROOM 1 Note Status: Finalized Patient [...] argon plasma coagulation (APC). Clipwas placed. Clip it support engineer: [employer]. - Diverticulosis in the entire examined colon. [...] passed under direct vision.The Pediatric Colonoscope PCF-H190L [id number] was introduced through the anus and advanced [...] one hemostatic clip was successfully placed. Clip it support engineer: [employer] Muse. There was no bleeding at the end [...] 12:16 PM Procedure Code(s): --- Professional --- 80063, Colonoscopy, flexible; with control of bleeding, any method Diagnosis Code(s): --- Professional --- K55.21, Angiodysplasia of colon with hemorrhage K64.8, Other hemorrhoids K92.1, Melena (includes Hematochezia) D62, Acute posthemorrhagic anemia K57.30, Diverticulosis of large intestine without perforation orabscess without bleeding CPT copyright 2020 [employer]. All rights reserved. The codes documented in this report are preliminary and upon invoice coder reviewmay be revised to meet current compliance requirements. Recognized by the [place] for promoting quality in endoscopy Coleen Collins MD ENDOSCOPY PROCEDURES Final Result from Last 3 Months or Most Recently Relevant to Health Maintenance Insurance [facility] MEDICARE [facility] AETNA MEDICARE GOLD Advance Directives For more information, please contact: [phone] * Full Code (Latest Code Status on [...] 10:29 AM 08/01/2022 10:29 AM Care Teams Hospital Librarian Relationship Specialty Start Date End Date Dallin Cifuentes MD PCP - General Family Practice 07/19/23 Vinicio Escoto MD Consulting Physician Cardiology 08/11/21 Titus Can MD Referring Physician Cardiovascular Disease 01/24/22 Coleen Collins MD Consulting Physician Gastroenterology 08/05/22
--- OUTSIDE RECORDS SUMMARY | 2024-10-22 20:46 | XMS_ITS | Clinical Summary ---
Author Organization [facility] Address [address] [place] [address] Care Team Providers Care Bulk Fluids Handler Name Role Phone Alexander Sifuentes NP Primary Care Provider [phone] Social History Tobacco Use Types Packs/Day Years [...] this topic Medical Devices Implanted Type Area Framing Manager Device Identifier Shelf Expiration Date Model / Serial / Lot Ra Lead-01/23/2022 Implanted:Qty: 1 on 01/23/2022 by Gentry Salas MD Lead Implant Right: Atrium BIOTRONIK SOLIA S 53 [id number] / [id number] / Rv Lead-01/23/2022 Implanted:Qty: 1 on 01/23/2022 by Gnetry Salas MD Lead Implant Right: Ventricle BIOTRONIK SOLIA S 60 766308 / [id number] / Pacemaker-01/23 Implanted:Qty: 1 on 01/23/2022 by Gentry Salas MD Pacemaker Chest BIOTRONIK EDORA 8 NEAL [id number] / [id number] / Description:MR Conditional u nder following conditions: Static magnetic field of 1.5 T or 3 T, max spatial gradient field of 3000 gauss/cm or less, Max slew rate 200 T/m/s, Max whole body JUSTO of 2 w/kg or less, Head JUSTO 3.2 W/kg or less, Max 30 minutes active scan time in 60 minute [place] [address] AETNA Care Teams Bulk Fluids Handler Relationship Specialty Start Date End Date Alexander Sifuentes NP PCP - General 03/12/24
--- OUTSIDE RECORDS SUMMARY | 2024-10-22 20:46 | XMS_ITS | Clinical Summary ---
Author Organization [facility] Healthcare Address [address] [place] [address] Care Team Providers Care Unix System Administrator Name Role Phone Vinicio Escoto MD Unavailable [phone] Titus Can MD Unavailable Coleen Collins MD Unavailable [phone] Dallin Cifuentes MD Primary Care Provider [phone] Allergies Active Allergy Reactions Criticality Noted Date [...] (01/23/2022): Added automatically from request for surgery [id number] Hypothyroidism 08/09/2021 Assessment & Plan (08/10/2021 8:49 AM MANAGER MEAT): TSH wnl - continue home levothyroxine Assessment & Plan (08/09/2021 6:25 AM MANAGER MEAT): TSH wnl - continue home levothyroxine Obesity (BMI 30.0-34.9) 08/08/2021 Assessment & Plan (08/10/2021 8:49 AM MANAGER MEAT): - weight loss encouraged Assessment & Plan (08/09/2021 9:26 AM MANAGER MEAT): - weight loss encouraged Assessment & Plan (08/08/2021 5:33 PM MANAGER MEAT): - weight loss encouraged Depression 08/08/2021 Assessment & Plan (08/10/2021 8:49 AM MANAGER MEAT): Mood appears stable - continue home cymbalta Assessment & Plan (08/09/2021 9:26 AM MANAGER MEAT): Mood appears stable - continue home cymbalta Assessment & Plan (08/08/2021 5:35 PM MANAGER MEAT): Mood appears stable - continue home cymbalta Insomnia 08/08/2021 Assessment & Plan (08/10/2021 8:49 AM MANAGER MEAT): - continue home trazodone, will order ramelteon in place of melatonin Assessment & Plan (08/09/2021 9:27 AM MANAGER MEAT): - continue home trazodone, will order ramelteon in place of melatonin Assessment & Plan (08/08/2021 5:36 PM MANAGER MEAT): - continue home trazodone, will order ramelteon in place of melatonin DOMONIQUE (obstructive sleep apnea) 02/27/2020 Assessment & Plan (08/10/2021 8:49 AM MANAGER MEAT): Intolerant to CPAP. Has oral appliance at home, did not bring with her Assessment & Plan (08/09/2021 9:26 AM MANAGER MEAT): Intolerant to CPAP. Has oral appliance at home, did not bring with her Assessment & Plan (08/08/2021 5:33 PM MANAGER MEAT): Intolerant to CPAP. Has oral appliance at [...] today Assessment & Plan (08/10/2021 8:43 AM MANAGER MEAT): Symptomatic paroxysmal atrial fibrillation, Admitted to sotalol [...] prior Assessment & Plan (08/09/2021 9:26 AM MANAGER MEAT): Symptomatic paroxysmal atrial fibrillation, Admitted to sotalol [...] prior Assessment & Plan (08/08/2021 5:29 PM MANAGER MEAT): Symptomatic paroxysmal atrial fibrillation, Admitted to sotalol [...] artery disease of n ative artery of [place] heart with stable angina pectoris 10/12/2017 Essential hypertension 10/12/2017 Hyperlipidemia LDL goal <70 10/12/2017 Jaw pain 10/12/2017 Pre-syncope 10/12/2017 Shortness of breath 10/12/2017 Acute diverticulitis Acute blood loss anemia Encounters Date Type Department Care Team Description 10/01/2024 Orders Only [facility] Cardiology [address] [facility] Medical Office Building [address] [place] [address] Vinicio Escoto MD 08/13/2024 Telephone [facility] Cardiology [address] [facility] 8th [place] [address] [place] [address] Vinicio Escoto MD from Last [...] Brother 1 Heart disease Brother 2 Vinayak Calvin Hypertension Brother 2 Vinayak Calvin Anemia Daughter 1 Miranda Brambila Cancer Daughter 1 Miranda Brambila Mental illness Daughter 2 Luda Prashant Arthritis Father Al Kalyn Heart attack Father Al Kalyn Heart disease Father Al Calvin Hypertension Father Al Kalyn Stroke Father Al [...] often do you attend chur ch or evangelical services? More than 4 times per year 08/02/2022 Do you belong to any clubs o r organizations such as jewish groups, unions, fraternal or athletic groups, or [...] on file Legal Sex Female 12:34 AM MANAGER MEAT Gender Identity Not on file Sexual Orientation Not on file Occupation Industry Job Start Date Job End Date retired Not on file Not on file Not on file Obstetrics History Last Filed Vital Signs Vital Sign Reading Time Taken Comments Blood Pressure 146/86 03/26/2024 2:56 PM CDT Pulse 92 03/26/2024 2:56 PM CDT Temperature 36.9 C (98.4 F) 08/05/2022 7:00 AM MANAGER MEAT Respiratory Rate 18 08/05/2022 7:00 AM MANAGER MEAT Oxygen Saturation 97% 03/26/2024 2:56 PM CDT [...] home safety. Medical Devices Implanted Type Area Shoe Sticks Repairer Device Identifier Shelf Expiration Date Model / Serial / Lot Vascade Mvp 6-12fr Venous Closure [id number] - [id number] Implanted:Qty: 1 on 10/03/2021 by Vinicio Escoto MD at [facility] [employer] 07/07/2023 800-612C -10U / / [id number] 113A Vascade Mvp 6-12fr Venous Closure [id number] - [id number] Implanted:Qty: 1 on 10/03/2021 by Vinicio Escoto MD at [facility] [employer] 07/07/2023 800-612C -10U / / [id number] 113A Vascade Mvp 6-12fr Venous Closure [id number] - [id number] Implanted:Qty: 1 on 10/03/2021 by Vinicio Escoto MD at [facility] [employer] 07/07/2023 800-612C -10U / / [id number] 113A Implantable Loop Recorder Implantable Loop Recorder Chest Description:Placed Lumbar Fusion- 016 Implanted:05/02 (Quantity not on file) Other - see comments N/A: Spine Lumbar Bi[employer] Inc Solia S 53cm Steroid Elute Bipolar Active Fixation Endocardial 479654 - [id number] - [id number] Implanted:Qty: 1 on 01/23/2022 by Gentry Salas MD at [facility] Pacemaker Right: Atria [employer] 12/30/2023 534673 / [id number] / XXX [employer] Inc Promri Solia S 60cm Lead Pacing Steroid Eluting 744806 - [id number] - [id number] Implanted:Qty: 1 on 01/23/2022 by Gentry Salas MD at [facility] Pacemaker Right: Ventricle [employer] Inc 11/30/2023 092606 / [id number] / XXX Children'S Nursery Assistant Chest [employer] Edora Promri 86d10y8.5mm Dual Chamber Rate Adaptive Unipolar Bipolar 711273 - [id number] - [id number] Implanted:Qty: 1 on 01/23/2022 by Gentry Salas MD at [facility] Left: Chest [employer] Inc 05/31/2023 [id number] / [id number] / XXX Procedures Procedure Name Priority Date/Time Associated Diagnosis Comments DEVICE CHECK - REMOTE Routine 10/01/2024 4:13 AM CDT COLONOSCOPY 08/03/2022 12:16 PM MANAGER MEAT from Last 3 Months or Most Recently Relevant to Health Maintenance Results * DEVICE CHECK - REMOTE (10/01/2024 4:13 AM CDT) Anatomical Region Laterality Modality Other 10/01/2024 4:13 AM CDT Narrative 10/21/2024 4:24 PM CDT Interpretation Summary: Battery and Leads (BL) Normal parameters noted on battery and lead(s) --- 75% remaining longevity. Lead impedance, sensing, and threshold trends stable and appropriate. Presenting Rhythm (UT) Atrial Pacing-Ventricular Sensing (AP-VS) --- AP/VS 60 [...] and threshold trends stable andappropriate. Presenting Rhythm (UT) Atrial Pacing-Ventricular Sensing (AP-VS) --- AP/VS 60 [...] Final Result * COLONOSCOPY (08/03/2022 12:16 PM MANAGER MEAT) Anatomical Region Laterality Modality Other Narrative Procedure Note Coleen Collins MD - 08/03/2022 12:16 PM CST [facility] Patient Name: Erin Sinha Procedure Date: 08/03/2022 12:16 PM Date of : 1950 Admit Type: Inpatient Age: 72 Gender: Female Attending MD: Coleen Collins M.D. [facility] 1 Note Status: Finalized [...] argon plasma coagulation (APC). Clipwas placed. Clip keno attendant: [employer]. - Diverticulosis in the entire examined colon. [...] passed under direct vision.The Pediatric Colonoscope PCF-H190L [id number] was introduced through the anus and advanced [...] one hemostatic clip was successfully placed. Clip keno attendant: [employer]. There was no bleeding at the end [...] 12:16 PM Procedure Code(s): --- Professional --- 07827, Colonoscopy, flexible; with control of bleeding, any method Diagnosis Code(s): --- Professional --- K55.21, Angiodysplasia of colon with hemorrhage K64.8, Other hemorrhoids K92.1, Melena (includes Hematochezia) D62, Acute posthemorrhagic anemia K57.30, Diverticulosis of large intestine without perforation orabscess without bleeding CPT copyright 2020 [employer] [employer]. All rights reserved. The codes documented in this report are preliminary and upon motorboat mechanic helper reviewmay be revised to meet current compliance requirements. Recognized by the [place] [employer] for promoting quality in endoscopy Coleen Collins MD ENDOSCOPY PROCEDURES Final Result from Last 3 Months or Most Recently Relevant to Health Maintenance Insurance AETNA MEDICARE GOLD AETNA MEDICARE GOLD Advance Directives For more information, please contact: [phone] * Full Code (Latest Code Status on [...] 10:29 AM 08/01/2022 10:29 AM Care Teams Unix System Administrator Relationship Specialty Start Date End Date Dallin Cifuentes MD PCP - General Family Practice 07/19/23 Vinicio Escoto MD Consulting Physician Cardiology 08/11/21 Titus Can MD Referring Physician Cardiovascular Disease 01/24/22 Coleen Collins MD Consulting Physician Gastroenterology 08/05/22
--- OUTSIDE RECORDS SUMMARY | 2024-10-22 20:46 | XMS_ITS | Encounter Summary ---
Author Organization [facility] Address [address] [place] [address] Phone Care Team Providers Care Insights Analyst Name Role Phone Vinicio Escoto MD Unavailable Titus Can MD Unavailable Coleen Collins MD Unavailable [phone] Dallin Cifuentes MD Primary Care Provider [phone] Encounter Details Date Type Department Care Team (Late st Contact Info) Description 10/01/2024 Orders Only [facility] Cardiology [address] [facility] Medical Office Building [address] [place] [address] Vinicio Escoto MD [address] [facility] [address] [place] [address] Social History Tobacco Use Types [...] week 08/02/2022 How often do you attend [facility] or [facility] services? More than 4 times per year 08/02/2022 Do you belong to any clubs o r organizations such as synagogue groups, unions, fraternal or athletic groups, or [...] on file Legal Sex Female 12:34 AM STRIKER OFF Gender Identity Not on file Sexual Orientation [...] on stairs Contact your local community or [facility] for information on exercise, fall prevention [...] threshold trends stable and appropriate. Presenting Rhythm (ID) Atrial Pacing-Ventricular Sensing (AP-VS) --- AP/VS 60 [...] and threshold trends stable andappropriate. Presenting Rhythm (ID) Atrial Pacing-Ventricular Sensing (AP-VS) --- AP/VS 60 [...] on filedocumented in this encounter Care Teams Insights Analyst Relationship Specialty Start Date End Date Dallin Cifuentes MD PCP - General Family Practice 07/19/23 Vinicio Escoto MD Consulting Physician Cardiology 08/11/21 Titus Can MD Referring Physician Cardiovascular Disease 01/24/22 Coleen Collins MD Consulting Physician Gastroenterology 08/05/22 documented as of this encounter
--- OUTSIDE RECORDS SUMMARY | 2024-10-22 20:46 | XMS_ITS | CONTINUITY OF CARE DOCUMENT ---
Author Name [email or web address] Address Unknown Organization [facility] Address [address] [facility] [address] [place] [address] Phone [phone] Care Team Providers Care Manager Hospitality Name Role Phone Pamella DAVE, Titus Unavailable [phone] Titus Can MD Unavailable [phone] PROBLEMS Condition Status Date Provider Notes S/P [...] In-person encounter Office Visit Titus Can MD [facility] Cardiology examinationAtrial FibrillationHyperlipidemiaHypertensionPacemakerDysp ava VITAL SIGNS [...] Can MD carvedilol 12.5 mg tablet active Mnose Gallo Xarelto 20 mg tablet active Monse Gallo trazodone 50 mg tablet active Monse Gallo pantoprazole 40 mg tablet,delayed release (DR/EC) active Monse Gallo duloxetine 60 mg capsule,delayed release(DR/EC) active Mones Gallo fluticasone propionate 50 mcg/actuation spray,suspension active Monse Gallo alprazolam 1 mg tablet active Monse Gallo gabapentin 300 mg capsule active Monse Gallo baclofen 10 mg tablet active Monse Gallo levothyroxine 75 mcg tablet active Monse Gallo INSURANCE PROVIDERS Payer name Policy type / Coverage type [place] [employer] party ID [facility] [id number] [place] [id number] ADVANCE DIRECTIVES Name Date DISCUSSED - NO DECISION MADE TREATMENT PLAN Date Name Performer [id number],C,W ith activities P ossible anginal equivalent. Stress [...] 12.5 Mg Tablet (Carvedilol) Titus Can MD [id number],C,w ell controlled H er updated medication list for this problem includes: Lasix 20 Mg Tablet (Furosemide) ..... Take 1 tablet by mouth once a day take 1 tablet by mouth daily. Carvedilol 12.5 Mg Tablet (Carvedilol) Titus Can MD [id number],C,I n paced atrial rhythm O n Xarelto [...]
[2024-10-22] MEDS: HYDROcodone/acetaminophen (*CRX) 5-325 MG TABLET 1 TAB PO (20:49)
[2024-10-22] MEDS: HYDROmorphone HCL INJ (*CRX) 2 MG/ML VIAL 1 MG IM (22:08)
[2024-10-22 23:02] VITALS: BP 112/68; PULSE 62; RESP 15; O2SAT 96
== END 2024-10-22 23:04 | disposition home or self-care (01) ==
PROVIDERS: Emergency Provider Physician Assistant; PCP Internal Medicine
DX: S52.502A Unspecified fracture of the lower end of left radius, initial encounter for closed fracture (principal); S09.90XA Unspecified injury of head, initial encounter; W18.30XA Fall on same level, unspecified, initial encounter; I48.91 Unspecified atrial fibrillation; Z79.01 Long term (current) use of anticoagulants; K21.9 Gastro-esophageal reflux disease without esophagitis; Z86.73 Personal history of transient ischemic attack (TIA), and cerebral infarction without residual deficits; I48.0 Paroxysmal atrial fibrillation; E03.9 Hypothyroidism, unspecified; I10 Essential (primary) hypertension; E55.9 Vitamin D deficiency, unspecified
CPT/HCPCS: 29125; 70450; 72125; 73070; 73100; 73130; 96372; 99284; A4565; A9270; J1171

== ENCOUNTER 2024-11-12 16:05 | Outpatient (CLI) | payer MEDICARE, SELFPAY ==
--- OUTSIDE RECORDS SUMMARY | 2024-11-12 16:10 | XMS_ITS | Clinical Summary ---
Author Organization [facility] Healthcare Address [address] [place] [address] Care Team Providers Care Sack Sewer Name Role Phone Vinicio Escoto MD Unavailable [phone] Titus Can MD Unavailable Coleen Collins MD Unavailable [phone] Dallin Cifuentes MD Primary Care Provider [phone] Allergies Active Allergy Reactions Criticality Noted Date [...] (01/23/2022): Added automatically from request for surgery [id number] Hypothyroidism 08/09/2021 Assessment & Plan (08/10/2021 8:49 AM WEIGHTS AND MEASURES INSPECTOR): TSH wnl - continue home levothyroxine Assessment & Plan (08/09/2021 6:25 AM WEIGHTS AND MEASURES INSPECTOR): TSH wnl - continue home levothyroxine Obesity (BMI 30.0-34.9) 08/08/2021 Assessment & Plan (08/10/2021 8:49 AM WEIGHTS AND MEASURES INSPECTOR): - weight loss encouraged Assessment & Plan (08/09/2021 9:26 AM WEIGHTS AND MEASURES INSPECTOR): - weight loss encouraged Assessment & Plan (08/08/2021 5:33 PM WEIGHTS AND MEASURES INSPECTOR): - weight loss encouraged Depression 08/08/2021 Assessment & Plan (08/10/2021 8:49 AM WEIGHTS AND MEASURES INSPECTOR): Mood appears stable - continue home cymbalta Assessment & Plan (08/09/2021 9:26 AM WEIGHTS AND MEASURES INSPECTOR): Mood appears stable - continue home cymbalta Assessment & Plan (08/08/2021 5:35 PM WEIGHTS AND MEASURES INSPECTOR): Mood appears stable - continue home cymbalta Insomnia 08/08/2021 Assessment & Plan (08/10/2021 8:49 AM WEIGHTS AND MEASURES INSPECTOR): - continue home trazodone, will order ramelteon in place of melatonin Assessment & Plan (08/09/2021 9:27 AM WEIGHTS AND MEASURES INSPECTOR): - continue home trazodone, will order ramelteon in place of melatonin Assessment & Plan (08/08/2021 5:36 PM WEIGHTS AND MEASURES INSPECTOR): - continue home trazodone, will order ramelteon in place of melatonin DOMONIQUE (obstructive sleep apnea) 02/27/2020 Assessment & Plan (08/10/2021 8:49 AM WEIGHTS AND MEASURES INSPECTOR): Intolerant to CPAP. Has oral appliance at home, did not bring with her Assessment & Plan (08/09/2021 9:26 AM WEIGHTS AND MEASURES INSPECTOR): Intolerant to CPAP. Has oral appliance at home, did not bring with her Assessment & Plan (08/08/2021 5:33 PM WEIGHTS AND MEASURES INSPECTOR): Intolerant to CPAP. 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 Cardiology [address] [place] [address] Vinicio Escoto MD from Last 3 Months [...] Brother 1 Heart disease Brother 2 Vinayak [place] Hypertension Brother 2 Vinayak [place] Anemia Daughter 1 Miranda Brambila Cancer Daughter 1 Miranda Brambila Mental illness Daughter 2 Luda [place] Arthritis Father Al [place] Heart attack Father Al Kalyn Heart disease Father Al [place] Hypertension Father Al Kalyn Stroke Father Al [place] Stroke; Cause o f : Stroke Cancer [...] Status Comments Brother 1 Brother 2 Vinayak [place] Daughter 1 Miranda Brambila Daughter 2 Luda Prashant Father Al Kalyn (Age 77) Maternal Grandmother Rajani Brown Mother Mariam Hoang Alive Other Sister 1 Sister 2 Marika Deshaun Social History Tobacco Use Types Packs/Day Years [...] often do you attend chur ch or yazidi services? More than 4 times per year 08/02/2022 Do you belong to any clubs o r organizations such as mormon groups, unions, fraternal or athletic groups, or [...] on file Legal Sex Female 12:34 AM WEIGHTS AND MEASURES INSPECTOR Gender Identity Not on file Sexual Orientation Not on file Occupation Industry Job Start Date Job End Date retired Not on file Not on file Not on file Obstetrics History Last Filed Vital Signs Vital Sign Reading Time Taken Comments Blood Pressure 146/86 03/26/2024 2:56 PM CDT Pulse 92 03/26/2024 2:56 PM CDT Temperature 36.9 C (98.4 F) 08/05/2022 7:00 AM WEIGHTS AND MEASURES INSPECTOR Respiratory Rate 18 08/05/2022 7:00 AM WEIGHTS AND MEASURES INSPECTOR Oxygen Saturation 97% 03/26/2024 2:56 PM CDT [...] 04/06/2020, 07/22/2019, Additional history exists Covid-19 Vaccine (4 - 2023-2 5 season) 2024 06/15/2021, 09/03/2020, 08/05/2020 Influenza Vaccine (Season Ended) 2025 08/05/2022, 06/15/2021, 04/15/2020, Additional history exists Pneumococcal vaccine 65+ Completed 07/30/2017, 03/2017 Colon Cancer Screening-CT Colonography Discontinued 08/03/2022 Colon Cancer Screening-Colonoscopy Discontinued 08/03/2022 Colon Cancer Screening-DNA Stool Discontinued 08/03/19 Colon Cancer Screening-FIT Discontinued 08/03/2022 Colon Cancer Screening-FOBT Discontinued 08/03/2022 Colon Cancer Screening-Sigmoidoscopy Discontinued 08/03/2022 Colorectal Cancer Screening Discontinued Goals Goal Patient Goal Type Associated Problems Recent Progress Patient-Stated? Author CCM Chronic Pain Care Plan Chronic Care Management No Jaja Castelan RN Note: Problem: Chronic Pain Goals: 1. [...] on stairs Contact your local community or [facility] for information on exercise, fall prevention programs, or options for improving home safety. Medical Devices Implanted Type Area Physicist Solid Earth Device Identifier Shelf Expiration Date Model / Serial / Lot Vascade Mvp 6-12fr Venous Closure [id number] - [id number] Implanted:Qty: 1 on 10/03/2021 by Vinicio Escoto MD at [facility] [employer] 07/07/2023 [id number] -[id number] / / [id number] Vascade Mvp 6-12fr Venous Closure [id number] - [id number] Implanted:Qty: 1 on 10/03/2021 by Vinicio Escoto MD at [facility] [employer] 07/07/2023 [id number] -[id number] / / [id number] Vascade Mvp 6-12fr Venous Closure [id number] - [id number] Implanted:Qty: 1 on 10/03/2021 by Vinicio Escoto MD at [facility] [employer] 07/07/2023 [id number] -[id number] / / [id number] Implantable Loop Recorder Implantable Loop Recorder Chest Description:Placed Lumbar Fusion- 016 Implanted:05/02 (Quantity not on file) Other - see comments N/A: Spine Lumbar [employer] Solia S 53cm Steroid Elute Bipolar Active Fixation Endocardial [id number] - [id number] - [id number] Implanted:Qty: 1 on 01/23/2022 by Gentry Salas MD at [facility] Pacemaker Right: Atria [employer] 12/30/2023 [id number] / [id number] / XXX [employer] Promri Solia S 60cm Lead Pacing Steroid Eluting [id number] - [id number] - [id number] Implanted:Qty: 1 on 01/23/2022 by Gentry Salas MD at [facility] Pacemaker Right: Ventricle [employer] 11/30/2023 [id number] / [id number] / XXX Seat Cover Maker Chest [employer] Edora Promri 78b80a1.5mm Dual Chamber Rate Adaptive Unipolar Bipolar [id number] - [id number] - [id number] Implanted:Qty: 1 on 01/23/2022 by Gentry Salas MD at [facility] Left: Chest [employer] 05/31/2023 [id number] / [id number] / XXX Procedures Procedure Name Priority Date/Time Associated Diagnosis Comments DEVICE CHECK - REMOTE Routine 10/01/2024 4:13 AM CDT COLONOSCOPY 08/03/2022 12:16 PM WEIGHTS AND MEASURES INSPECTOR from Last 3 Months or Most Recently Relevant to Health Maintenance Results * DEVICE CHECK - REMOTE (10/01/2024 4:13 AM CDT) Anatomical Region Laterality Modality Other 10/01/2024 4:13 AM CDT Narrative 10/21/2024 4:24 PM CDT Interpretation Summary: Battery and Leads (BL) Normal parameters noted on battery and lead(s) --- 75% remaining longevity. Lead impedance, sensing, and threshold trends stable and appropriate. Presenting Rhythm (DE) Atrial Pacing-Ventricular Sensing (AP-VS) --- AP/VS 60 [...] and threshold trends stable andappropriate. Presenting Rhythm (DE) Atrial Pacing-Ventricular Sensing (AP-VS) --- AP/VS 60 bpm. Arrhythmic events (AE) No new arrhythmic events in monitoring period --- Since 07/02/24: No AHRor VHR episodes. Anticoagulation (AC) Patient prescribed Rivaroxaban (Xarelto) Patient on anticoagulant therapy Transmission Information (TI) Device Summary Report Follow Up (FU) Patient's primary treating physician will be apprised of findings Vinicio Escoto MD [facility] PRO CEDURES Final Result * COLONOSCOPY (08/03/2022 12:16 PM WEIGHTS AND MEASURES INSPECTOR) Anatomical Region Laterality Modality Other Narrative Procedure Note Coleen Collins MD - 08/03/2022 12:16 PM CST [facility] Patient Name: Erin Sinha Procedure Date: 08/03/2022 12:16 PM Date of : 1950 Admit Type: Inpatient Age: 72 Gender: Female Attending MD: Coleen Collins M.D. Room: [facility] ENDOSCOPY ROOM 1 Note Status: Finalized Patient [...] argon plasma coagulation (APC). Clipwas placed. Clip supplier quality manager: Vtrim. - Diverticulosis in the entire examined colon. [...] passed under direct vision.The Pediatric Colonoscope [id number] was introduced through the anus and advanced [...] one hemostatic clip was successfully placed. Clip supplier quality manager: Vtrim. There was no bleeding at the end [...] 12:16 PM Procedure Code(s): --- Professional --- 36896, Colonoscopy, flexible; with control of bleeding, any method Diagnosis Code(s): --- Professional --- K55.21, Angiodysplasia of colon with hemorrhage K64.8, Other hemorrhoids K92.1, Melena (includes Hematochezia) D62, Acute posthemorrhagic anemia K57.30, Diverticulosis of large intestine without perforation orabscess without bleeding CPT copyright 2020 [employer]. All rights reserved. The codes documented in this report are preliminary and upon halver machine operator reviewmay be revised to meet current compliance requirements. Recognized by the [place] [employer] for promoting quality in endoscopy Coleen Collins MD ENDOSCOPY PROCEDURES Final Result from Last 3 Months or Most Recently Relevant to Health Maintenance Insurance [facility] AET MEDICARE GOLD Advance Directives For more information, please contact: [phone] * Full Code (Latest Code Status on [...] 10:29 AM 08/01/2022 10:29 AM Care Teams Sack Sewer Relationship Specialty Start Date End Date Dallin Cifuentes MD PCP - General Family Practice 07/19/23 Vinicio Escoto MD Consulting Physician Cardiology 08/11/21 Titus Can MD Referring Physician Cardiovascular Disease 01/24/22 Coleen Collins MD Consulting Physician Gastroenterology 08/05/22
--- OUTSIDE RECORDS SUMMARY | 2024-11-12 16:10 | XMS_ITS | CONTINUITY OF CARE DOCUMENT ---
Author Name [email or web address] Address Unknown Organization [facility] Address [address] [place] [address] Phone [phone] Care Team Providers Care Sheet Metal Pattern Cutter Name Role Phone Pamella DAVE, Titus Unavailable [phone] Titus Can MD Unavailable [phone] PROBLEMS Condition Status Date Provider Notes S/P [...] In-person encounter Office Visit Titus Can MD [facility] Cardiology examinationAtrial FibrillationHyperlipidemiaHypertensionPacemakerDysp ava VITAL SIGNS [...] Payer name Policy type / Coverage type [place] red democrat ID [facility] [id number] [place] [id number] ADVANCE DIRECTIVES Name Date DISCUSSED - NO DECISION MADE TREATMENT PLAN Date Name Performer [id number],C,W ith activities P ossible anginal equivalent. Stress [...] 12.5 Mg Tablet (Carvedilol) Titus Can MD [id number],C,w ell controlled H er updated medication list for this problem includes: Lasix 20 Mg Tablet (Furosemide) ..... Take 1 tablet by mouth once a day take 1 tablet by mouth daily. Carvedilol 12.5 Mg Tablet (Carvedilol) Titus Can MD [id number],C,I n paced atrial rhythm O n Xarelto [...]
--- OUTSIDE RECORDS SUMMARY | 2024-11-12 16:10 | XMS_ITS | Clinical Summary ---
Author Organization [facility] Address [address] [place] [address] Care Team Providers Care Donor Processor Name Role Phone Alexander Sifuentes NP Primary Care Provider [phone] Social History Tobacco Use Types Packs/Day Years [...] this topic Medical Devices Implanted Type Area Porter Marina Device Identifier Shelf Expiration Date Model / Serial / Lot Ra Lead-01/23/2022 Implanted:Qty: 1 on 01/23/2022 by Gentry Salas MD Lead Implant Right: Atrium [employer] SOLIA S 53 [id number] / [id number] / Rv Lead-01/23/2022 Implanted:Qty: 1 on 01/23/2022 by Gentry Salas MD Lead Implant Right: Ventricle [employer] SOLIA S 60 [id number] / [id number] / Pacemaker-01/23 Implanted:Qty: 1 on 01/23/2022 by Gentry Salas MD Pacemaker Chest [employer]IK EDORA 8 NEAL [id number] / [id number] / Description:MR Conditional u nder following conditions: Static magnetic field of 1.5 T or 3 T, max spatial gradient field of 3000 gauss/cm or less, Max slew rate 200 T/m/s, Max whole body JUSTO of 2 w/kg or less, Head JUSTO 3.2 W/kg or less, Max 30 minutes active scan time in 60 [place] [address] [employer] Care Teams Donor Processor Relationship Specialty Start Date End Date Alexander Sifuentes NP PCP - General 03/12/24
--- OUTSIDE RECORDS SUMMARY | 2024-11-12 16:10 | XMS_ITS | Referral Summary ---
Author Organization [facility] Healthcare Address [address] [place] [address] Care Team Providers Care Lime Kiln Tender Name Role Phone Vinicio Escoto MD Unavailable Titus Can MD Unavailable Coleen Collins MD Unavailable [phone] Dallin Cifuentes MD Primary Care Provider [phone] Encounters Date Type Department Care Team Description 10/01/2024 Orders Only [facility] Cardiology [address] [facility] [address] [place] [address] Vinicio Escoto MD from Last [...] (01/23/2022): Added automatically from request for surgery [id number] Hypothyroidism 08/09/2021 Assessment & Plan (08/10/2021 8:49 AM RESIDENTIAL SOLAR CONSULTANT): TSH wnl - continue home levothyroxine Assessment & Plan (08/09/2021 6:25 AM RESIDENTIAL SOLAR CONSULTANT): TSH wnl - continue home levothyroxine Obesity (BMI 30.0-34.9) 08/08/2021 Assessment & Plan (08/10/2021 8:49 AM RESIDENTIAL SOLAR CONSULTANT): - weight loss encouraged Assessment & Plan (08/09/2021 9:26 AM RESIDENTIAL SOLAR CONSULTANT): - weight loss encouraged Assessment & Plan (08/08/2021 5:33 PM RESIDENTIAL SOLAR CONSULTANT): - weight loss encouraged Depression 08/08/2021 Assessment & Plan (08/10/2021 8:49 AM RESIDENTIAL SOLAR CONSULTANT): Mood appears stable - continue home cymbalta Assessment & Plan (08/09/2021 9:26 AM RESIDENTIAL SOLAR CONSULTANT): Mood appears stable - continue home cymbalta Assessment & Plan (08/08/2021 5:35 PM RESIDENTIAL SOLAR CONSULTANT): Mood appears stable - continue home cymbalta Insomnia 08/08/2021 Assessment & Plan (08/10/2021 8:49 AM RESIDENTIAL SOLAR CONSULTANT): - continue home trazodone, will order ramelteon in place of melatonin Assessment & Plan (08/09/2021 9:27 AM RESIDENTIAL SOLAR CONSULTANT): - continue home trazodone, will order ramelteon in place of melatonin Assessment & Plan (08/08/2021 5:36 PM RESIDENTIAL SOLAR CONSULTANT): - continue home trazodone, will order ramelteon in place of melatonin DOMONIQUE (obstructive sleep apnea) 02/27/2020 Assessment & Plan (08/10/2021 8:49 AM RESIDENTIAL SOLAR CONSULTANT): Intolerant to CPAP. Has oral appliance at home, did not bring with her Assessment & Plan (08/09/2021 9:26 AM RESIDENTIAL SOLAR CONSULTANT): Intolerant to CPAP. Has oral appliance at home, did not bring with her Assessment & Plan (08/08/2021 5:33 PM RESIDENTIAL SOLAR CONSULTANT): Intolerant to CPAP. Has oral appliance at home, did not bring with her Status post placement of implantable loop record er 01/26/2020 Overview (08/16/2021): Biotronik-Biomonitor III Implantable Loop Recorder. Dx; Syncope, Afib. DOI 01/23/2020-Kathleen. Biotronik remote home monitoring. 08/16/2021-remote monitoring transferred to [place]-Dr Escoto. Recurrent syncope 01/16/2020 Hypersomnolence 01/16/2020 Paroxysmal atrial flutter 09/10/2019 Chest pain 09/10/2019 Black stools 06/07/2018 Paroxysmal atrial fibrillation (CMS/HCC) 018 Assessment & Plan (10/04/2021 12:10 PM CDT): S/p successful Afib ablation Continue xarelto, Continue ppi -continue amiodarone -anticipate d/c home today Assessment & Plan (08/10/2021 8:43 AM RESIDENTIAL SOLAR CONSULTANT): Symptomatic paroxysmal atrial fibrillation, Admitted to sotalol [...] prior Assessment & Plan (08/09/2021 9:26 AM RESIDENTIAL SOLAR CONSULTANT): Symptomatic paroxysmal atrial fibrillation, Admitted to sotalol [...] prior Assessment & Plan (08/08/2021 5:29 PM RESIDENTIAL SOLAR CONSULTANT): Symptomatic paroxysmal atrial fibrillation, Admitted to sotalol [...] artery disease of n ative artery of [place] heart with stable angina pectoris 10/12/2017 Essential [...] often do you attend chur ch or anglican services? More than 4 times per year 08/02/2022 Do you belong to any clubs o r organizations such as nondenominational groups, unions, fraternal or athletic groups, or [...] on file Legal Sex Female 12:34 AM RESIDENTIAL SOLAR CONSULTANT Gender Identity Not on file Sexual Orientation Not on file Occupation Industry Job Start Date Job End Date retired Not on file Not on file Not on file Last Filed Vital Signs Vital Sign Reading Time Taken Comments Blood Pressure 146/86 03/26/2024 2:56 PM CDT Pulse 92 03/26/2024 2:56 PM CDT Temperature 36.9 C (98.4 F) 08/05/2022 7:00 AM RESIDENTIAL SOLAR CONSULTANT Respiratory Rate 18 08/05/2022 7:00 AM RESIDENTIAL SOLAR CONSULTANT Oxygen Saturation 97% 03/26/2024 2:56 PM CDT [...] home safety. Medical Devices Implanted Type Area [place] Measurer Device Identifier Shelf Expiration Date Model / Serial / Lot Vascade Mvp 6-12fr Venous Closure [id number] - [id number] Implanted:Qty: 1 on 10/03/2021 by Vinicio Escoto MD at [facility] [employer] 07/07/2023 800-612C -10U / / [id number] 113A Vascade Mvp 6-12fr Venous Closure [id number] - [id number] Implanted:Qty: 1 on 10/03/2021 by Vinicio Escoto MD at [facility] [employer] 07/07/2023 800-612C -10U / / [id number] 113A Vascade Mvp 6-12fr Venous Closure [id number] - [id number] Implanted:Qty: 1 on 10/03/2021 by Vinicio Escoto MD at [facility] [facility] [employer] 07/07/2023 800-612C -[id number] / / [id number] 113A Implantable Loop Recorder Implantable Loop Recorder Chest Description:Placed Lumbar Fusion- 016 Implanted:05/02 (Quantity not on file) Other - see comments N/A: Spine Lumbar [employer] Solia S 53cm Steroid Elute Bipolar Active Fixation Endocardial [id number] - [id number] - [id number] Implanted:Qty: 1 on 01/23/2022 by Gentry Salas MD at [facility] Pacemaker Right: [employer] 12/30/2023 [id number] / [id number] / XXX [employer] Promri Solia S 60cm Lead Pacing Steroid Eluting [id number] - [id number] - [id number] Implanted:Qty: 1 on 01/23/2022 by Gentry Salas MD at [facility] Pacemaker Right: Ventricle [employer] 11/30/2023 [id number] / [id number] / XXX Hot Wort Settler Chest [employer] Edora Promri [id number] Dual Chamber Rate Adaptive Unipolar Bipolar 402163 - [id number] - [id number] Implanted:Qty: 1 on 01/23/2022 by Gentry Salas MD at [facility] Left: Chest [employer] 05/31/2023 [id number] / [id number] / XXX Procedures Procedure Name Priority Date/Time Associated Diagnosis Comments DEVICE CHECK - REMOTE Routine 10/01/2024 4:13 AM CDT COLONOSCOPY 08/03/2022 12:16 PM RESIDENTIAL SOLAR CONSULTANT from Last 3 Months or Most Recently Relevant to Health Maintenance Results * DEVICE CHECK - REMOTE (10/01/2024 4:13 AM CDT) Anatomical Region Laterality Modality Other 10/01/2024 4:13 AM CDT Narrative 10/21/2024 4:24 PM CDT Interpretation Summary: Battery and Leads (BL) Normal parameters noted on battery and lead(s) --- 75% remaining longevity. Lead impedance, sensing, and threshold trends stable and appropriate. Presenting Rhythm (HI) Atrial Pacing-Ventricular Sensing (AP-VS) --- AP/VS 60 [...] and threshold trends stable andappropriate. Presenting Rhythm (HI) Atrial Pacing-Ventricular Sensing (AP-VS) --- AP/VS 60 [...] Final Result * COLONOSCOPY (08/03/2022 12:16 PM RESIDENTIAL SOLAR CONSULTANT) Anatomical Region Laterality Modality Other Narrative Procedure Note Coleen Collins MD - 08/03/2022 12:16 PM CST [facility] Patient Name: Erin Sinha Procedure Date: 08/03/2022 12:16 PM Date of : 1950 Admit Type: Inpatient Age: 72 Gender: Female Attending MD: Coleen Collins M.D. Room: [facility] ENDOSCOPY ROOM 1 Note Status: [...] argon plasma coagulation (APC). Clipwas placed. 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 - Diverticulosis in the entire examined colon. [...] passed under direct vision.The Pediatric Colonoscope [id number]-[id number] was introduced through the anus and advanced [...] one hemostatic clip was successfully placed. 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 There was no bleeding at the end [...] 12:16 PM Procedure Code(s): --- Professional --- 56703, Colonoscopy, flexible; with control of bleeding, any method Diagnosis Code(s): --- Professional --- K55.21, Angiodysplasia of colon with hemorrhage K64.8, Other hemorrhoids K92.1, Melena (includes Hematochezia) D62, Acute posthemorrhagic anemia K57.30, Diverticulosis of large intestine without perforation orabscess without bleeding CPT copyright 2020 [employer]. All rights reserved. The codes documented in this report are preliminary and upon equal opportunity director reviewmay be revised to meet current compliance requirements. Recognized by the [employer] for promoting quality in endoscopy Coleen Collins MD ENDOSCOPY PROCEDURES Final Result from Last 3 Months or Most Recently Relevant to Health Maintenance Insurance AETNA MEDICARE GOLD AETNA MEDICARE GOLD AETNA MEDICARE GOLD Advance Directives For more information, please contact: [phone] * Full Code (Latest Code Status on [...] 10:29 AM 08/01/2022 10:29 AM Care Teams L[employer] Kiln Tender Relationship Specialty Start Date End Date Dallin Cifuentes MD PCP - General Family Practice 07/19/23 Vinicio Escoto MD Consulting Physician Cardiology 08/11/21 Titus Can MD Referring Physician Cardiovascular Disease 01/24/22 Coleen Collins MD Consulting Physician Gastroenterology 08/05/22
[2024-11-12 16:39] LABS: Basophils Absolute Auto 0.1 K/mm3 (0.0-0.1); Basophils Percent Auto 0.7 % (0.2-1.2); Eosinophils Absolute Auto 0.1 K/mm3 (0-0.3); Eosinophils Percent Auto 1.7 % (0-4.4); Hematocrit 30.7 % (37.0-47.0); Hemoglobin 9.1 g/dL (12.0-15.0); Immature Granulocyte Absolute 0.01 K/mm3 (0.00-0.031); Immature Granulocyte Percent A 0.1 % (0-0.5); Lymphocytes Absolute Auto 2.14 K/mm3 (0.9-3.2); Mean Corpuscular HGB Conc 29.6 g/dl (32-36); Mean Corpuscular Hemoglobin 25.3 pg (26-34); Mean Corpuscular Volume 85.5 fl (80-100); Mean Platelet Volume 9.6 fl (7.4-10.4); Monocytes Absolute Auto 0.8 K/mm3 (0.1-0.6); Monocytes Percent Auto 11.6 % (2.6-8.5); Neutrophils Absolute Auto 3.8 K/mm3 (1.3-6.7); Neutrophils Percent Auto 54.9 % (45.5-73.1); Platelet Count Result 278 k/mm3 (150-375); Red Blood Count 3.59 M/mm3 (4.2-5.4); Red Cell Distribution Width 17.3 % (11.5-14.5); White Blood Count 6.9 K/mm3 (4.5-10.0)
[2024-11-12 16:52] LABS: Alanine Aminotransferase 20 U/L (6-35); Alkaline Phosphatase 91 U/L (38-126); Anion Gap 8 mmol/L (4-12); Aspartate Amino Transferase 38 U/L (14-36); Bilirubin,Total 0.4 mg/dL (0.2-1.3); Blood Urea Nitrogen 10 mg/dL (7-17); Calcium 9.1 mg/dL (8.4-10.2); Carbon Dioxide 27 mmol/L (22-30); Chloride 100 mmol/L (98-107); Cholesterol 152 mg/dL (0-200); Estimated Glomerular Filt Rate > 60; Glucose 105 mg/dL (65-110); HDL Direct 87 mg/dL; Potassium 3.6 mmol/L (3.4-5.0); Sodium 135 mmol/L (137-145); Triglycerides 75 mg/dL (<150)
[2024-11-12 17:02] LABS: LDL Cholesterol Direct 41 mg/dL
[2024-11-12 17:14] LABS: Platelet Estimate Adequate (Adequate)
[2024-11-12 17:15] LABS: Schistocytes None Seen
[2024-11-12 17:16] LABS: Hypochromasia 1+
[2024-11-12 17:17] LABS: Anisocytosis 2+; Band Neutrophils Percent 0 % (0-6)
[2024-11-14 07:38] LABS: CRP, High Sensitivity 0.3 mg/L
== END 2024-11-12 16:06 | disposition home or self-care (01) ==
LOC: ANHLAB 16:08
PROVIDERS: PCP Nurse Practitioner; Referring Provider Student in an Organized Health Care Education/Training Program; Visit Provider Psychiatry & Neurology Neurology
DX: R53.1 Weakness (principal); R41.3 Other amnesia; M54.81 Occipital neuralgia; R26.9 Unspecified abnormalities of gait and mobility; I48.91 Unspecified atrial fibrillation; R51.9 Headache, unspecified; E78.5 Hyperlipidemia, unspecified
CPT/HCPCS: 36415; 80053; 80061; 85025; 86141